=== PATIENT | male | born 1965 | race Caucasian/White ===

== ENCOUNTER 2016-05-08 01:22 | Inpatient (IN) | payer MEDICARE, MEDICAID ==
[2016-05-08] VITALS (8 sets, daily range): BP systolic 91–158; BP diastolic 56–95
[~2016-05-08] VITALS: Ht 188 cm; Wt 82.4 kg
--- NOTE | ~2016-05-08 | CON ---
[place], [place] REPORT OF CONSULTATION NAME: SALO FISH UNIT #: [id number] ROOM: 419 DOCTOR: BRAXTON DE JESUS MD BIRTHDATE: [birth year] DOS: 05/14/2016 CHIEF COMPLAINT: "I am just not feeling well." HISTORY OF PRESENT ILLNESS: This is a 50-year-old white male well known to me due to multiple admissions here at [facility]. He has a significant history of polysubstance abuse that includes alcohol, opioids and cocaine. Most recently, he states he went into withdrawal symptoms after quitting drinking and was also using the cocaine and heroin and Suboxone heavily. He reports to me now that he is not sleeping. He is going through withdrawal symptoms. He is feeling increasingly despondent and depressed and feels that he needs to be back on his medications. In the past, he has been on Zyprexa and Zoloft that have worked partially. He, however, has a significant history of medication noncompliance and lack of follow through. MENTAL STATUS: He is alert and oriented to person, place, and time. Mood is depressed. Affect is flat, blunted with some anxious overtones. He is rather irritable and terse at times. There are no overt psychotic symptoms at the present time. Memory is intact. DIAGNOSES: Bipolar, type 2 and polysubstance dependence. PLAN: I will simplify his drug regimen at this point. I am trying to minimize as much p.r.n. as possible because he will tend to overuse these medicines if he is given the chance I will discontinue Zoloft in lieu of Remeron 15 at bedtime as this will help with sleep and it will also block some of the opiate withdrawal symptoms. Restart on Zyprexa 5 mg in the morning and 10 mg at night for the same reason. This will offer mood stability and block some withdrawal symptoms. Avoid the use of Ativan as much as possible. Instead, I will start him on straight Vistaril 100 mg t.i.d. and start him back on his Neurontin 200 mg t.i.d. to decrease the anxiety with a non-addictive alternative. [facility]. BRAXTON DE JESUS MD CM:CONSTR:REPORT OF CONSULTATION 0906 05/14/16 1003 interface
[~2016-05-08 01:22] MED LIST: ADVAIR 250/501 EA INH; ADVAIR DISKUS 11 DSK INH; ADVAIR DISKUS 21 DSK INH; ALBUTEROL0.09 MG/A1 INH; ALBUTEROL0.09 MG/A2 INH; AMLODIPINE BES2.5 MG PO; ANAPROX DS550 MG PO; ASPIRIN ADULT L81 M2 PO; ASPIRIN EC325 MG PO; ASPRIN/BUTALBIT1 TAB; ATARAX,VISTARIL50 MG PO; ATIVAN; ATIVAN1 MG PO; ATIVAN2 MG PO; BACLOFEN10 MG PO; BACTRIM DS 8001 TA1 PO; BAYER ASPIRIN C81 MG PO; BENTYL10 MG PO; BRIN10TA PO; BUSPIRONE HCL10 MG PO; BUSPIRONE10 MG PO; CARDIZEM LA180 MG PO; COLACE100 MG PO; CYCLOBENZAPRINE5 M3 PO; DICYCLOMINE HCL20 MG PO; DILTIAZEM HYDR180 M2 PO; DOXEPIN100 MG PO; EFFIENT10 MG PO; GABAPENTIN300 MG PO; GABAPENTIN600 MG PO; GEODON20 MG PO; GEODON60 MG PO; GEODON80 MG PO; HYDROCODONE BIT1 T11 PO; HYDROXYZINE PAM25 MG PO; HYDROXYZINE PAM50 MG; IMDUR ER30 MG PO; INVEGA6 MG PO; KEFLEX500 MG PO; KROGER NIC21 MG/24 H T; LEVOFLOXACIN500 MG PO; LIBRIUM25 MG PO; LISINOPRIL10 M1 PO; LODINE400 MG PO; LOPRESSOR25 MG PO; LOPRESSOR50 MG PO; Lopressor25 MG PO; MEDROL DOSEPAK4 MG PO; METOPROLOL TART50 M1 PO; METOPROLOL50 MG PO; MIRTAZAPINE15 M2 PO; MIRTAZAPINE30 M2 PO; MOTRIN800 MG PO; MULTIVITAMIN1 TA1 PO; Motrin,Rufen800 MG PO; NEURONTIN800 MG PO; NITROSTAT0.4 MG SL; NORFLEX100 MG PO; NORTRIPTYLINE10 MG PO; NORVASC10 MG PO; OLANZAPINE10 MG PO; OMEPRAZOLE DR20 M1 PO; ONDANSETRON HYDR4 M1 PO; Orphenadrine C100 MG PO; PENICILLIN VK500 MG PO; PEPCID20 MG PO; PERCOCET 325 MG1 TA2 PO; PHENERGAN25 MG R; PLAVIX75 MG PO; PRAVACHOL40 MG PO; PROAIR HFA0.09 MG/AC INH; PROAIR HFA8.5 GM INH; PROTONIX40 MG PO; RANEXA500 MG PO; RISPERDAL0.25 MG PO; RISPERDAL2 MG PO; ROBAXIN750 MG PO; Robaxin PO; SEPTRA DS 800 M1 TAB PO; SERTRALINE HYD100 MG PO; SERTRALINE HYDR50 MG PO; SINEMET 25-100M1 TAB PO; SINGULAIR10 MG PO; THERA TABS1 TAB PO; TRAMADOL HCL50 MG PO; TRAZODONE HYDR150 MG PO; ULTRAM50 MG PO; VICODIN 5/500 505 MG PO; VICODIN 500 MG-1 TAB PO; VITAMIN B-11 TAB PO; VITAMIN D50000 IU PO; XANAX0.25 MG PO; XANAX0.5 MG PO; XANAX1 MG PO; ZYPREXA10 M1 PO; ZYPREXA2.5 MG PO; [UNRECOGNIZED DRUG - REMARK]
[2016-05-08 01:43] LABS: BASO % 0.3 % (0.0-1.0); EOS # 0.2 10*3/uL (0.0-0.4); EOS % 1.8 % (1.0-4.0); HEMOGLOBIN 12.9 g/dl (14.0-18.0); LYMPH # 2.1 10*3/uL (1.3-4.4); LYMPH % 22.4 % (27.0-41.0); MEAN CELL VOLUME 86.2 fl (80.0-94.0); MEAN CORPUSCULAR HGB 27.8 pg (27.0-31.0); MEAN CORPUSCULAR HGB CONC 32.3 g/dl (33.0-37.0); MEAN PLATELET VOLUME 10.5 fl (9.6-12.3); MONO # 0.8 10*3/uL (0.1-1.0); MONO % 8.8 % (3.0-9.0); NEUT # 6.2 10*3/uL (2.3-7.9); NEUT % 66.5 % (47.0-73.0); PLATELET COUNT AUTOMATED 208 10*3/uL (130-400); RED BLOOD COUNT 4.64 10*6/uL (4.50-5.90); RED CELL DISTRI WIDTH 14.6 % (0-14.5); WHITE BLOOD COUNT 9.3 10*3/uL (4.8-10.8)
[2016-05-08 01:59] LABS: ALBUMIN 3.7 gm/dl (3.1-4.5); ALKALINE PHOSPHATASE 85 U/L (45-117); BILIRUBIN, TOTAL 0.2 mg/dl (0.2-1.0); BUN 10 mg/dl (7-24); CARBON DIOXIDE 26 mmol/L (21-32); CHLORIDE 104 mmol/L (98-107); EST GLOM FILT AFRICAN AMERICAN > 60 ml/min; GLUCOSE 79 mg/dL (65-99); MAGNESIUM 2.1 mg/dL (1.5-2.1); POTASSIUM 4.3 mmol/L (3.5-5.1); SGOT/AST 47 IU/L (3-35); SGPT/ALT 60 U/L (12-78); SODIUM 140 mmol/L (136-145); TOTAL PROTEIN 7.8 gm/dL (6.4-8.2)
[2016-05-08 02:10] LABS: BILIRUBIN NEGATIVE (NEGATIVE); BLOOD NEGATIVE (NEGATIVE); CLARITY CLEAR (CLEAR); COLOR YELLOW (YELLOW); GLUCOSE NEGATIVE (NEGATIVE); KETONE NEGATIVE (NEGATIVE); LEUKO ESTERASE NEGATIVE (NEGATIVE); NITRITE NEGATIVE (NEGATIVE); PROTEIN NEGATIVE (NEGATIVE); UROBILINOGEN 0.2 E.U./dl (0.2-1.0)
[2016-05-08 02:16] LABS: URINE REFLEX COMMENT NO (NO)
[2016-05-08 02:19] LABS: URINE AMPHETAMINES < 1000 (1000ng/ml); URINE BARBITURATES < 200 (200ng/ml); URINE COCAINE < 300 (300ng/ml)
[2016-05-08 10:56] LABS: BASO % 0.4 % (0.0-1.0); EOS # 0.2 10*3/uL (0.0-0.4); EOS % 2.5 % (1.0-4.0); HEMATOCRIT 37.7 % (42.0-52.0); HEMOGLOBIN 12.6 g/dl (14.0-18.0); LYMPH # 1.7 10*3/uL (1.3-4.4); LYMPH % 23.6 % (27.0-41.0); MEAN CELL VOLUME 83.6 fl (80.0-94.0); MEAN CORPUSCULAR HGB 27.9 pg (27.0-31.0); MEAN CORPUSCULAR HGB CONC 33.4 g/dl (33.0-37.0); MEAN PLATELET VOLUME 10.5 fl (9.6-12.3); MONO % 13.1 % (3.0-9.0); NEUT # 4.3 10*3/uL (2.3-7.9); PLATELET COUNT AUTOMATED 189 10*3/uL (130-400); RED BLOOD COUNT 4.51 10*6/uL (4.50-5.90); RED CELL DISTRI WIDTH 14.7 % (0-14.5); WHITE BLOOD COUNT 7.2 10*3/uL (4.8-10.8)
[2016-05-08 11:05] LABS: INTERNATIONAL NORM RATIO 0.9 (2.0-3.5)
[2016-05-08 11:11] LABS: ALBUMIN 3.4 gm/dl (3.1-4.5); ALKALINE PHOSPHATASE 85 U/L (45-117); BILIRUBIN, TOTAL 0.3 mg/dl (0.2-1.0); BUN 9 mg/dl (7-24); CARBON DIOXIDE 20 mmol/L (21-32); CHLORIDE 108 mmol/L (98-107); EST GLOM FILT AFRICAN AMERICAN > 60 ml/min; GLUCOSE 96 mg/dL (65-99); POTASSIUM 4.1 mmol/L (3.5-5.1); SGOT/AST 38 IU/L (3-35); SGPT/ALT 51 U/L (12-78); SODIUM 142 mmol/L (136-145); TOTAL PROTEIN 7.2 gm/dL (6.4-8.2)
[2016-05-08] MEDS ORDERED: AMBIEN10 M1 PO (15:51)
[2016-05-08] MEDS ORDERED: LOPRESSOR50 M1 PO (15:51)
[2016-05-09] VITALS: BP 146/80
[2016-05-09 03:57] VITALS: BP 136/78
[2016-05-09 08:00] VITALS: BP 142/95
[2016-05-09 12:00] VITALS: BP 130/84
[2016-05-09 16:00] VITALS: BP 145/95
[2016-05-09 20:00] VITALS: BP 127/91
[2016-05-10] VITALS: BP 137/983
[2016-05-10 04:00] VITALS: BP 149/92
[2016-05-10 06:13] LABS: BASO # 0.1 10*3/uL (0.0-0.1); BASO % 0.9 % (0.0-1.0); EOS # 0.3 10*3/uL (0.0-0.4); EOS % 4.7 % (1.0-4.0); HEMATOCRIT 38.1 % (42.0-52.0); HEMOGLOBIN 12.2 g/dl (14.0-18.0); LYMPH # 1.7 10*3/uL (1.3-4.4); LYMPH % 26.7 % (27.0-41.0); MEAN CELL VOLUME 86.2 fl (80.0-94.0); MEAN CORPUSCULAR HGB 27.6 pg (27.0-31.0); MEAN PLATELET VOLUME 11.1 fl (9.6-12.3); MONO # 0.7 10*3/uL (0.1-1.0); MONO % 11.5 % (3.0-9.0); NEUT # 3.5 10*3/uL (2.3-7.9); PLATELET COUNT AUTOMATED 155 10*3/uL (130-400); RED BLOOD COUNT 4.42 10*6/uL (4.50-5.90); RED CELL DISTRI WIDTH 14.2 % (0-14.5); WHITE BLOOD COUNT 6.3 10*3/uL (4.8-10.8)
[2016-05-10 06:43] LABS: ALBUMIN 3.2 gm/dl (3.1-4.5); ALKALINE PHOSPHATASE 101 U/L (45-117); BILIRUBIN, TOTAL 0.2 mg/dl (0.2-1.0); BUN 14 mg/dl (7-24); CARBON DIOXIDE 28 mmol/L (21-32); CHLORIDE 102 mmol/L (98-107); EST GLOM FILT AFRICAN AMERICAN > 60 ml/min; GLUCOSE 94 mg/dL (65-99); POTASSIUM 4.2 mmol/L (3.5-5.1); SGOT/AST 46 IU/L (3-35); SGPT/ALT 58 U/L (12-78); SODIUM 139 mmol/L (136-145); TOTAL PROTEIN 6.8 gm/dL (6.4-8.2)
[2016-05-10 08:00] VITALS: BP 129/87
[2016-05-10 12:00] VITALS: BP 128/92
[2016-05-10 16:00] VITALS: BP 122/96
[2016-05-10 20:00] VITALS: BP 130/72
[2016-05-11] VITALS: BP 130/78
[2016-05-11 04:00] VITALS: BP 132/80
[2016-05-11 08:00] VITALS: BP 140/72
[2016-05-11 16:00] VITALS: BP 123/77
[2016-05-12] VITALS: BP 116/85; BP 129/52
[2016-05-12 08:00] VITALS: BP 124/86
[2016-05-12 12:00] VITALS: BP 121/71
[2016-05-12 16:00] VITALS: BP 110/68
[2016-05-12 20:00] VITALS: BP 116/59
[2016-05-13] VITALS: BP 109/50
[2016-05-13 06:25] LABS: BASO % 0.5 % (0.0-1.0); EOS # 0.3 10*3/uL (0.0-0.4); EOS % 4.5 % (1.0-4.0); HEMATOCRIT 39.7 % (42.0-52.0); HEMOGLOBIN 12.9 g/dl (14.0-18.0); LYMPH % 26.4 % (27.0-41.0); MEAN CELL VOLUME 86.3 fl (80.0-94.0); MEAN CORPUSCULAR HGB CONC 32.5 g/dl (33.0-37.0); MEAN PLATELET VOLUME 10.9 fl (9.6-12.3); MONO # 0.8 10*3/uL (0.1-1.0); MONO % 10.6 % (3.0-9.0); NEUT # 4.4 10*3/uL (2.3-7.9); NEUT % 57.7 % (47.0-73.0); PLATELET COUNT AUTOMATED 213 10*3/uL (130-400); RED CELL DISTRI WIDTH 13.8 % (0-14.5); WHITE BLOOD COUNT 7.6 10*3/uL (4.8-10.8)
[2016-05-13 07:01] LABS: EST GLOM FILT AFRICAN AMERICAN > 60 ml/min
[2016-05-13 08:00] VITALS: BP 140/79
[2016-05-13 12:00] VITALS: BP 132/80
[2016-05-13 16:00] VITALS: BP 126/86
[2016-05-13 20:00] VITALS: BP 136/90
[2016-05-14] VITALS: BP 134/87
[2016-05-14 08:00] VITALS: BP 130/79
[2016-05-14 12:00] VITALS: BP 154/84
[2016-05-14 16:00] VITALS: BP 110/84
[2016-05-14 20:00] VITALS: BP 116/69
[2016-05-15] MEDS ORDERED: CLONIDINE0.2 MG PO (19:19)
[2016-05-15] MEDS ORDERED: PHENERGAN25 MG R (19:19)
== END 2016-05-14 22:52 | disposition left against medical advice (07) | DRG 894 ==
LOC: ED 01:22 → 4E 09:17 → EDHOLD 09:17 → ICCU 09:17 → 4E 09:30 → ICCU 10:30 → 4E 05-10 14:24 → ICCU 05-10 23:22 → 4E 05-11 13:43
PROVIDERS: Emergency Medicine; Internal Medicine; Internal Medicine Hospice and Palliative Medicine; Student in an Organized Health Care Education/Training Program
DX: F10.231 Alcohol dependence with withdrawal delirium (principal); I10 Essential (primary) hypertension; F31.81 Bipolar II disorder; F12.10 Cannabis abuse, uncomplicated; F10.232 Alcohol dependence with withdrawal with perceptual disturbance; D64.9 Anemia, unspecified; I25.10 Atherosclerotic heart disease of native coronary artery without angina pectoris; F14.10 Cocaine abuse, uncomplicated; F19.10 Other psychoactive substance abuse, uncomplicated; J44.9 Chronic obstructive pulmonary disease, unspecified; F17.200 Nicotine dependence, unspecified, uncomplicated; F11.10 Opioid abuse, uncomplicated; E78.5 Hyperlipidemia, unspecified; Z53.21 Procedure and treatment not carried out due to patient leaving prior to being seen by health care provider; Z95.5 Presence of coronary angioplasty implant and graft; Z83.3 Family history of diabetes mellitus; Z79.899 Other long term (current) drug therapy

== ENCOUNTER 2016-05-16 14:05 | Emergency (ER) | payer MEDICARE, MEDICAID ==
[~2016-05-16] VITALS: Ht 187.9 cm; Wt 68.0 kg
[~2016-05-16 14:05] MED LIST changes: +AMBIEN10 M1 PO; +CLONIDINE0.2 MG PO; +LOPRESSOR50 M1 PO
[2016-05-16 14:12] VITALS: BP 158/88
[2016-05-16 14:41] LABS: BASO # 0.1 10*3/uL (0.0-0.1); BASO % 0.4 % (0.0-1.0); EOS # 0.1 10*3/uL (0.0-0.4); EOS % 0.5 % (1.0-4.0); HEMATOCRIT 37.9 % (42.0-52.0); LYMPH # 3.7 10*3/uL (1.3-4.4); LYMPH % 26.8 % (27.0-41.0); MEAN CELL VOLUME 80.8 fl (80.0-94.0); MEAN CORPUSCULAR HGB 27.7 pg (27.0-31.0); MEAN CORPUSCULAR HGB CONC 34.3 g/dl (33.0-37.0); MEAN PLATELET VOLUME 9.7 fl (9.6-12.3); MONO # 1.2 10*3/uL (0.1-1.0); MONO % 8.5 % (3.0-9.0); NEUT # 8.7 10*3/uL (2.3-7.9); NEUT % 63.5 % (47.0-73.0); PLATELET COUNT AUTOMATED 277 10*3/uL (130-400); RED BLOOD COUNT 4.69 10*6/uL (4.50-5.90); RED CELL DISTRI WIDTH 13.8 % (0-14.5); WHITE BLOOD COUNT 13.7 10*3/uL (4.8-10.8)
[2016-05-16 14:50] LABS: PROTHROMBIN TIME 10.4 SECONDS (9.0-12.4)
[2016-05-16 14:58] LABS: ALBUMIN 4.2 gm/dl (3.1-4.5); ALKALINE PHOSPHATASE 99 U/L (45-117); BILIRUBIN, TOTAL 0.3 mg/dl (0.2-1.0); BUN 6 mg/dl (7-24); C-REACTIVE PROTEIN 0.43 MG/DL (0-0.3); CARBON DIOXIDE 21 mmol/L (21-32); CHLORIDE 101 mmol/L (98-107); CKMB 2.3 ng/ml (0.5-3.6); CPK 325 U/L (39-308); EST GLOM FILT AFRICAN AMERICAN > 60 ml/min; GLUCOSE 86 mg/dL (65-99); MAGNESIUM 1.9 mg/dL (1.5-2.1); POTASSIUM 3.7 mmol/L (3.5-5.1); SGOT/AST 117 IU/L (3-35); SGPT/ALT 164 U/L (12-78); SODIUM 135 mmol/L (136-145); TOTAL PROTEIN 8.4 gm/dL (6.4-8.2)
[2016-05-16 14:59] LABS: TROPONIN I < 0.015 ng/ml (<0.045)
[2016-05-16 16:38] LABS: LA>2 REFLEX 2 HR DRAW NOW
== END 2016-05-16 14:50 | disposition left against medical advice (07) ==
LOC: ED 14:05
PROVIDERS: Nurse Practitioner Family
DX: F14.10 Cocaine abuse, uncomplicated (principal); F17.200 Nicotine dependence, unspecified, uncomplicated; F11.10 Opioid abuse, uncomplicated; I25.10 Atherosclerotic heart disease of native coronary artery without angina pectoris; J44.9 Chronic obstructive pulmonary disease, unspecified; F32.9 Major depressive disorder, single episode, unspecified; E78.5 Hyperlipidemia, unspecified; I10 Essential (primary) hypertension; F12.10 Cannabis abuse, uncomplicated; Z79.899 Other long term (current) drug therapy; Z98.890 Other specified postprocedural states; Z88.8 Allergy status to other drugs, medicaments and biological substances

== ENCOUNTER 2016-05-20 23:59 | Emergency (ER) | payer MEDICARE, MEDICAID ==
[~2016-05-20] VITALS: Ht 187.9 cm; Wt 81.6 kg
[2016-05-21 00:04] VITALS: BP 119/71
[2016-05-21 00:48] LABS: BASO # 0.1 10*3/uL (0.0-0.1); BASO % 0.6 % (0.0-1.0); EOS # 0.1 10*3/uL (0.0-0.4); HEMATOCRIT 35.1 % (42.0-52.0); HEMOGLOBIN 11.8 g/dl (14.0-18.0); LYMPH % 39.2 % (27.0-41.0); MEAN CELL VOLUME 83.6 fl (80.0-94.0); MEAN CORPUSCULAR HGB 28.1 pg (27.0-31.0); MEAN CORPUSCULAR HGB CONC 33.6 g/dl (33.0-37.0); MEAN PLATELET VOLUME 9.7 fl (9.6-12.3); MONO # 0.7 10*3/uL (0.1-1.0); MONO % 6.5 % (3.0-9.0); NEUT # 5.3 10*3/uL (2.3-7.9); NEUT % 52.5 % (47.0-73.0); PLATELET COUNT AUTOMATED 233 10*3/uL (130-400); RED CELL DISTRI WIDTH 14.4 % (0-14.5); WHITE BLOOD COUNT 10.1 10*3/uL (4.8-10.8)
[2016-05-21 01:02] LABS: ALBUMIN 3.5 gm/dl (3.1-4.5); ALKALINE PHOSPHATASE 95 U/L (45-117); BILIRUBIN, TOTAL 0.3 mg/dl (0.2-1.0); BUN 6 mg/dl (7-24); CARBON DIOXIDE 20 mmol/L (21-32); CHLORIDE 103 mmol/L (98-107); EST GLOM FILT AFRICAN AMERICAN > 60 ml/min; GLUCOSE 78 mg/dL (65-99); POTASSIUM 3.6 mmol/L (3.5-5.1); SGOT/AST 45 IU/L (3-35); SGPT/ALT 69 U/L (12-78); SODIUM 135 mmol/L (136-145)
[2016-05-21 01:40] LABS: BILIRUBIN NEGATIVE (NEGATIVE); BLOOD NEGATIVE (NEGATIVE); CLARITY CLEAR (CLEAR); COLOR YELLOW (YELLOW); GLUCOSE NEGATIVE (NEGATIVE); KETONE NEGATIVE (NEGATIVE); LEUKO ESTERASE NEGATIVE (NEGATIVE); NITRITE NEGATIVE (NEGATIVE); PROTEIN NEGATIVE (NEGATIVE); SPECIFIC GRAVITY <= 1.005 (1.005-1.030); UROBILINOGEN 0.2 E.U./dl (0.2-1.0)
[2016-05-21 01:46] LABS: BACTERIA TRACE; EPITHELIAL CELLS 0-2; RBC 0-2 rbc/hpf (0-2); URINE REFLEX COMMENT NO (NO)
[2016-05-21 01:53] LABS: URINE AMPHETAMINES < 1000 (1000ng/ml); URINE BARBITURATES < 200 (200ng/ml); URINE COCAINE > 300 (300ng/ml)
== END 2016-05-21 05:21 | disposition left against medical advice (07) ==
LOC: ED 23:59
PROVIDERS: Emergency Medicine Emergency Medical Services
DX: F10.120 Alcohol abuse with intoxication, uncomplicated (principal); I25.10 Atherosclerotic heart disease of native coronary artery without angina pectoris; J44.9 Chronic obstructive pulmonary disease, unspecified; F32.9 Major depressive disorder, single episode, unspecified; F14.10 Cocaine abuse, uncomplicated; F12.10 Cannabis abuse, uncomplicated; I10 Essential (primary) hypertension; E78.5 Hyperlipidemia, unspecified; F19.10 Other psychoactive substance abuse, uncomplicated; F11.10 Opioid abuse, uncomplicated; F17.200 Nicotine dependence, unspecified, uncomplicated; Z79.899 Other long term (current) drug therapy; Z88.8 Allergy status to other drugs, medicaments and biological substances

== ENCOUNTER 2016-05-25 09:52 | Inpatient (IN) | payer MEDICARE, MEDICAID ==
[2016-05-25] VITALS (7 sets, daily range): BP systolic 115–150; BP diastolic 68–99
[~2016-05-25] VITALS: Ht 188 cm; Wt 83.1 kg
[2016-05-25 10:56] LABS: BASO % 0.5 % (0.0-1.0); EOS # 0.1 10*3/uL (0.0-0.4); EOS % 1.7 % (1.0-4.0); HEMATOCRIT 36.1 % (42.0-52.0); HEMOGLOBIN 12.2 g/dl (14.0-18.0); LYMPH % 34.5 % (27.0-41.0); MEAN CELL VOLUME 84.1 fl (80.0-94.0); MEAN CORPUSCULAR HGB 28.4 pg (27.0-31.0); MEAN CORPUSCULAR HGB CONC 33.8 g/dl (33.0-37.0); MEAN PLATELET VOLUME 9.8 fl (9.6-12.3); MONO # 0.4 10*3/uL (0.1-1.0); NEUT # 3.3 10*3/uL (2.3-7.9); NEUT % 57.1 % (47.0-73.0); PLATELET COUNT AUTOMATED 193 10*3/uL (130-400); RED BLOOD COUNT 4.29 10*6/uL (4.50-5.90); RED CELL DISTRI WIDTH 15.5 % (0-14.5); WHITE BLOOD COUNT 5.8 10*3/uL (4.8-10.8)
[2016-05-25 11:05] LABS: PROTHROMBIN TIME 10.7 SECONDS (9.0-12.4)
[2016-05-25 11:15] LABS: ALBUMIN 3.5 gm/dl (3.1-4.5); ALKALINE PHOSPHATASE 98 U/L (45-117); BILIRUBIN, TOTAL 0.4 mg/dl (0.2-1.0); BUN 3 mg/dl (7-24); C-REACTIVE PROTEIN 1.69 MG/DL (0-0.3); CARBON DIOXIDE 25 mmol/L (21-32); CHLORIDE 112 mmol/L (98-107); CKMB 3.1 ng/ml (0.5-3.6); CPK 346 U/L (39-308); EST GLOM FILT AFRICAN AMERICAN > 60 ml/min; GLUCOSE 80 mg/dL (65-99); MAGNESIUM 1.8 mg/dL (1.5-2.1); POTASSIUM 3.7 mmol/L (3.5-5.1); SGOT/AST 38 IU/L (3-35); SGPT/ALT 49 U/L (12-78); SODIUM 144 mmol/L (136-145); TOTAL PROTEIN 7.4 gm/dL (6.4-8.2)
[2016-05-25 11:17] LABS: TROPONIN I < 0.015 ng/ml (<0.045)
[2016-05-25 14:15] LABS: BILIRUBIN NEGATIVE (NEGATIVE); BLOOD NEGATIVE (NEGATIVE); CLARITY CLEAR (CLEAR); COLOR YELLOW (YELLOW); GLUCOSE NEGATIVE (NEGATIVE); KETONE NEGATIVE (NEGATIVE); LEUKO ESTERASE NEGATIVE (NEGATIVE); NITRITE NEGATIVE (NEGATIVE); PROTEIN NEGATIVE (NEGATIVE); SPECIFIC GRAVITY <= 1.005 (1.005-1.030); UROBILINOGEN 0.2 E.U./dl (0.2-1.0)
[2016-05-25 14:25] LABS: URINE AMPHETAMINES < 1000 (1000ng/ml); URINE BARBITURATES < 200 (200ng/ml); URINE COCAINE > 300 (300ng/ml)
[2016-05-25 14:27] LABS: BACTERIA TRACE; EPITHELIAL CELLS 0-2; RBC 0-2 rbc/hpf (0-2); URINE REFLEX COMMENT NO (NO); WBC 0-2 wbc/hpf (0-5)
[2016-05-26] VITALS: BP 148/99
[2016-05-26 04:00] VITALS: BP 138/90
[2016-05-26 06:22] LABS: BASO % 0.4 % (0.0-1.0); EOS # 0.2 10*3/uL (0.0-0.4); EOS % 3.3 % (1.0-4.0); HEMATOCRIT 38.5 % (42.0-52.0); HEMOGLOBIN 12.5 g/dl (14.0-18.0); LYMPH % 27.3 % (27.0-41.0); MEAN CELL VOLUME 85.6 fl (80.0-94.0); MEAN CORPUSCULAR HGB 27.8 pg (27.0-31.0); MEAN CORPUSCULAR HGB CONC 32.5 g/dl (33.0-37.0); MEAN PLATELET VOLUME 10.6 fl (9.6-12.3); MONO # 0.8 10*3/uL (0.1-1.0); MONO % 11.5 % (3.0-9.0); NEUT # 4.1 10*3/uL (2.3-7.9); NEUT % 57.2 % (47.0-73.0); PLATELET COUNT AUTOMATED 200 10*3/uL (130-400); RED CELL DISTRI WIDTH 15.7 % (0-14.5); WHITE BLOOD COUNT 7.2 10*3/uL (4.8-10.8)
[2016-05-26 06:49] LABS: ALBUMIN 3.3 gm/dl (3.1-4.5); BUN 7 mg/dl (7-24); CARBON DIOXIDE 27 mmol/L (21-32); CHLORIDE 110 mmol/L (98-107); EST GLOM FILT AFRICAN AMERICAN > 60 ml/min; GLUCOSE 82 mg/dL (65-99); POTASSIUM 3.9 mmol/L (3.5-5.1); SGOT/AST 30 IU/L (3-35); SGPT/ALT 41 U/L (12-78); SODIUM 143 mmol/L (136-145)
[2016-05-26 06:52] LABS: ALKALINE PHOSPHATASE 97 U/L (45-117); BILIRUBIN, TOTAL 0.9 mg/dl (0.2-1.0)
[2016-05-26 07:23] LABS: FOLIC ACID 10.11 ng/mL (>5.38)
[2016-05-26 08:00] VITALS: BP 154/97
[2016-05-26 12:00] VITALS: BP 156/101
[2016-05-26 16:00] VITALS: BP 161/99
[2016-05-26 20:00] VITALS: BP 170/110
[2016-05-27] VITALS: BP 138/92
[2016-05-27 04:00] VITALS: BP 132/86
[2016-05-27 08:00] VITALS: BP 167/110
[2016-05-27] MEDS ORDERED: CARBIDOPA/LEVOD1 TA1 PO (11:54)
[2016-05-27] MEDS ORDERED: LORAZEPAM1 MG PO (11:54)
[2016-05-27] MEDS ORDERED: METHOCARBAMOL750 M1 PO (11:54)
[2016-05-27] MEDS ORDERED: ZOFRAN 4 MG ED2 TAB PO (11:54)
[2016-05-27] MEDS ORDERED: ATARAX,VISTARIL50 MG PO (11:54)
[2016-05-27] MEDS ORDERED: LISINOPRIL20 MG PO (11:54)
[2016-05-27] MEDS ORDERED: ATIVAN1 MG PO (11:57)
[2016-05-27 12:00] VITALS: BP 144/93
== END 2016-05-27 12:22 | DRG 897 ==
LOC: ED 09:52 → EDHOLD 14:09 → ICCU 14:09
PROVIDERS: Emergency Medicine; Internal Medicine
DX: F10.231 Alcohol dependence with withdrawal delirium (principal); F14.10 Cocaine abuse, uncomplicated; F17.200 Nicotine dependence, unspecified, uncomplicated; F19.10 Other psychoactive substance abuse, uncomplicated; M79.1 Myalgia; G25.81 Restless legs syndrome; I10 Essential (primary) hypertension; F41.9 Anxiety disorder, unspecified; Z88.8 Allergy status to other drugs, medicaments and biological substances; Z95.5 Presence of coronary angioplasty implant and graft; Z83.3 Family history of diabetes mellitus; Z71.6 Tobacco abuse counseling

== ENCOUNTER 2016-06-28 11:10 | Inpatient (IN) | payer MEDICARE, MEDICAID ==
[~2016-06-28] VITALS: Ht 187.9 cm; Wt 83.6 kg
--- NOTE | ~2016-06-28 | EKG ---
[place], [place] ELECTROCARDIOGRAM REPORT NAME: SALO FISH UNIT #: [id number] ROOM: [place] [address] DOCTOR: SUKUMAR BALDERAS MD BIRTHDATE: [birth year] DOS: 06/28/2016 TIME: 11:27 p.m. Sinus tachycardia with rate 121. Probable biatrial enlargement. Nonspecific ST changes likely related to rate. Abnormal electrocardiogram. SUKUMAR BALDERAS MD CM:EKGRPT:ELECTROCARDIOGRAM REPORT 1224 1624 SUKUMAR BALDERAS MD
[~2016-06-28 11:10] MED LIST changes: +CARBIDOPA/LEVOD1 TA1 PO; +LISINOPRIL20 MG PO; +LORAZEPAM1 MG PO; +METHOCARBAMOL750 M1 PO; +ZOFRAN 4 MG ED2 TAB PO
[2016-06-28 11:15] VITALS: BP 135/91
[2016-06-28 11:30] LABS: BASO % 0.3 % (0.0-1.0); EOS # 0.1 10*3/uL (0.0-0.4); EOS % 1.9 % (1.0-4.0); HEMATOCRIT 40.7 % (42.0-52.0); HEMOGLOBIN 13.2 g/dl (14.0-18.0); LYMPH # 2.3 10*3/uL (1.3-4.4); LYMPH % 32.2 % (27.0-41.0); MEAN CELL VOLUME 87.9 fl (80.0-94.0); MEAN CORPUSCULAR HGB 28.5 pg (27.0-31.0); MEAN CORPUSCULAR HGB CONC 32.4 g/dl (33.0-37.0); MEAN PLATELET VOLUME 10.7 fl (9.6-12.3); MONO # 0.7 10*3/uL (0.1-1.0); MONO % 10.2 % (3.0-9.0); NEUT % 55.1 % (47.0-73.0); PLATELET COUNT AUTOMATED 169 10*3/uL (130-400); RED BLOOD COUNT 4.63 10*6/uL (4.50-5.90); RED CELL DISTRI WIDTH 16.5 % (0-14.5); WHITE BLOOD COUNT 7.2 10*3/uL (4.8-10.8)
[2016-06-28 11:48] LABS: ALBUMIN 3.7 gm/dl (3.1-4.5); ALKALINE PHOSPHATASE 103 U/L (45-117); BUN 9 mg/dl (7-24); CARBON DIOXIDE 17 mmol/L (21-32); CHLORIDE 101 mmol/L (98-107); EST GLOM FILT AFRICAN AMERICAN > 60 ml/min; GLUCOSE 81 mg/dL (65-99); SGOT/AST 30 IU/L (3-35); SGPT/ALT 34 U/L (12-78); SODIUM 139 mmol/L (136-145); TOTAL PROTEIN 7.6 gm/dL (6.4-8.2)
[2016-06-28 11:51] LABS: CPK 99 U/L (39-308)
[2016-06-28 11:54] LABS: TROPONIN I < 0.015 ng/ml (<0.045)
[2016-06-28] MEDS ORDERED: LOPRESSOR50 M1 PO (11:59)
[2016-06-28] MEDS ORDERED: ACAMPROSATE CA333 M1 PO (12:00)
[2016-06-28] MEDS ORDERED: NEURONTIN800 MG PO (12:03)
[2016-06-28] MEDS ORDERED: ZESTRIL20 MG PO (12:06)
[2016-06-28 12:41] LABS: BILIRUBIN NEGATIVE (NEGATIVE); BLOOD NEGATIVE (NEGATIVE); CLARITY CLEAR (CLEAR); COLOR STRAW (YELLOW); GLUCOSE NEGATIVE (NEGATIVE); KETONE 3+ (NEGATIVE); LEUKO ESTERASE NEGATIVE (NEGATIVE); NITRITE NEGATIVE (NEGATIVE); PH 5.5 (5.0-9.0); PROTEIN NEGATIVE (NEGATIVE); UROBILINOGEN 0.2 E.U./dl (0.2-1.0)
[2016-06-28 12:49] LABS: URINE REFLEX COMMENT NO (NO)
[2016-06-28 12:50] LABS: URINE AMPHETAMINES < 1000 (1000ng/ml); URINE BARBITURATES < 200 (200ng/ml); URINE COCAINE > 300 (300ng/ml)
[2016-06-28 16:00] VITALS: BP 122/78
[2016-06-28 18:30] LABS: CPK 85 U/L (39-308)
[2016-06-28 18:32] LABS: TROPONIN I < 0.015 ng/ml (<0.045)
[2016-06-28 20:00] VITALS: BP 156/98
[2016-06-29] VITALS (7 sets, daily range): BP systolic 111–154; BP diastolic 72–104
[2016-06-29 00:36] LABS: CKMB 0.6 ng/ml (0.5-3.6); CPK 70 U/L (39-308)
[2016-06-29 00:37] LABS: TROPONIN I < 0.015 ng/ml (<0.045)
[2016-06-29 06:46] LABS: BASO % 0.4 % (0.0-1.0); EOS # 0.2 10*3/uL (0.0-0.4); EOS % 3.4 % (1.0-4.0); HEMATOCRIT 37.1 % (42.0-52.0); HEMOGLOBIN 12.6 g/dl (14.0-18.0); LYMPH # 1.4 10*3/uL (1.3-4.4); LYMPH % 24.5 % (27.0-41.0); MEAN CELL VOLUME 86.9 fl (80.0-94.0); MEAN CORPUSCULAR HGB 29.5 pg (27.0-31.0); MEAN PLATELET VOLUME 10.4 fl (9.6-12.3); MONO # 0.7 10*3/uL (0.1-1.0); MONO % 12.1 % (3.0-9.0); NEUT # 3.3 10*3/uL (2.3-7.9); NEUT % 59.2 % (47.0-73.0); PLATELET COUNT AUTOMATED 160 10*3/uL (130-400); RED BLOOD COUNT 4.27 10*6/uL (4.50-5.90); RED CELL DISTRI WIDTH 16.6 % (0-14.5); WHITE BLOOD COUNT 5.5 10*3/uL (4.8-10.8)
[2016-06-29 06:57] LABS: PROTHROMBIN TIME 10.4 SECONDS (9.0-12.4)
[2016-06-29 07:00] LABS: ALBUMIN 3.2 gm/dl (3.1-4.5); ALKALINE PHOSPHATASE 101 U/L (45-117); BILIRUBIN, TOTAL 0.6 mg/dl (0.2-1.0); BUN 8 mg/dl (7-24); CARBON DIOXIDE 25 mmol/L (21-32); CHLORIDE 109 mmol/L (98-107); EST GLOM FILT AFRICAN AMERICAN > 60 ml/min; GLUCOSE 111 mg/dL (65-99); MAGNESIUM 1.8 mg/dL (1.5-2.1); SGOT/AST 24 IU/L (3-35); SGPT/ALT 29 U/L (12-78); SODIUM 142 mmol/L (136-145); TOTAL PROTEIN 6.6 gm/dL (6.4-8.2)
[2016-06-29 07:03] LABS: CKMB 0.7 ng/ml (0.5-3.6); CPK 66 U/L (39-308); TROPONIN I < 0.015 ng/ml (<0.045)
[2016-06-30] VITALS: BP 143/96
[2016-06-30 04:00] VITALS: BP 146/97
[2016-06-30 08:00] VITALS: BP 146/97
[2016-06-30 12:00] VITALS: BP 144/76
[2016-06-30 16:00] VITALS: BP 133/97
[2016-06-30 20:00] VITALS: BP 132/83
== END 2016-06-30 20:57 | disposition left against medical advice (07) | DRG 894 ==
LOC: ED 11:10 → EDHOLD 11:35 → ICCU 11:35 → 5E 06-30 13:48
PROVIDERS: Family Medicine; Nurse Practitioner Family
DX: F10.239 Alcohol dependence with withdrawal, unspecified (principal); E44.1 Mild protein-calorie malnutrition; I10 Essential (primary) hypertension; Z71.6 Tobacco abuse counseling; D64.9 Anemia, unspecified; R82.4 Acetonuria; I25.10 Atherosclerotic heart disease of native coronary artery without angina pectoris; F32.9 Major depressive disorder, single episode, unspecified; J44.9 Chronic obstructive pulmonary disease, unspecified; E78.5 Hyperlipidemia, unspecified; F60.3 Borderline personality disorder; F12.10 Cannabis abuse, uncomplicated; F41.9 Anxiety disorder, unspecified; F14.10 Cocaine abuse, uncomplicated; F11.10 Opioid abuse, uncomplicated; G25.81 Restless legs syndrome; Z53.21 Procedure and treatment not carried out due to patient leaving prior to being seen by health care provider; Z76.5 Malingerer [conscious simulation]; Z95.5 Presence of coronary angioplasty implant and graft; Z82.49 Family history of ischemic heart disease and other diseases of the circulatory system; Z88.8 Allergy status to other drugs, medicaments and biological substances; Z79.899 Other long term (current) drug therapy; Z68.23 Body mass index [BMI] 23.0-23.9, adult

== ENCOUNTER 2016-08-08 02:25 | Emergency (ER) | payer MEDICARE, MEDICAID ==
[~2016-08-08] VITALS: Ht 187.9 cm; Wt 86.2 kg
[~2016-08-08 02:25] MED LIST changes: +ACAMPROSATE CA333 M1 PO; +ZESTRIL20 MG PO
[2016-08-08] MEDS ORDERED: ATIVAN1 MG PO (02:35)
[2016-08-08] MEDS ORDERED: METOPROLOL TART50 M1 PO (02:35)
[2016-08-08] MEDS ORDERED: NEURONTIN800 MG PO (02:35)
[2016-08-08] MEDS ORDERED: ZOLOFT50 MG PO (02:36)
[2016-08-08] MEDS ORDERED: ASPIRIN81 MG PO (02:36)
[2016-08-08 04:03] LABS: HEMATOCRIT 39.3 % (42.0-52.0); HEMOGLOBIN 13.3 g/dl (14.0-18.0); MEAN CELL VOLUME 87.7 fl (80.0-94.0); MEAN CORPUSCULAR HGB 29.7 pg (27.0-31.0); MEAN CORPUSCULAR HGB CONC 33.8 g/dl (33.0-37.0); MEAN PLATELET VOLUME 10.2 fl (9.6-12.3); PLATELET COUNT AUTOMATED 176 10*3/uL (130-400); RED BLOOD COUNT 4.48 10*6/uL (4.50-5.90); RED CELL DISTRI WIDTH 15.4 % (0-14.5); WHITE BLOOD COUNT 15.9 10*3/uL (4.8-10.8)
[2016-08-08 04:21] LABS: LYMPHOCYTE # 4.1 10*3/uL (1.3-4.4); MONOCYTE # 1.7 10*3/uL (0.1-1.0); NEUTROPHILS 63 % (47-73); TOTAL CELLS COUNTED 100 #CELLS
[2016-08-08 04:22] LABS: PLATELET SUFFICIENCY NORMAL (NORMAL)
[2016-08-08 04:34] LABS: URINE AMPHETAMINES < 1000 (1000ng/ml); URINE BARBITURATES < 200 (200ng/ml); URINE COCAINE > 300 (300ng/ml)
[2016-08-08 04:37] LABS: ALBUMIN 4.1 gm/dl (3.1-4.5); ALKALINE PHOSPHATASE 105 U/L (45-117); BILIRUBIN, TOTAL 0.5 mg/dl (0.2-1.0); BUN 13 mg/dl (7-24); CARBON DIOXIDE 24 mmol/L (21-32); CHLORIDE 102 mmol/L (98-107); EST GLOM FILT AFRICAN AMERICAN > 60 ml/min; GLUCOSE 72 mg/dL (65-99); SGOT/AST 182 IU/L (3-35); SGPT/ALT 252 U/L (12-78); SODIUM 141 mmol/L (136-145)
[2016-08-08 05:39] LABS: BILIRUBIN NEGATIVE (NEGATIVE); BLOOD NEGATIVE (NEGATIVE); CLARITY CLEAR (CLEAR); COLOR YELLOW (YELLOW); GLUCOSE NEGATIVE (NEGATIVE); KETONE NEGATIVE (NEGATIVE); LEUKO ESTERASE NEGATIVE (NEGATIVE); NITRITE NEGATIVE (NEGATIVE); PROTEIN NEGATIVE (NEGATIVE); SPECIFIC GRAVITY <= 1.005 (1.005-1.030); UROBILINOGEN 0.2 E.U./dl (0.2-1.0)
[2016-08-08 05:47] LABS: BACTERIA TRACE; EPITHELIAL CELLS 0-2; RBC 0-2 rbc/hpf (0-2); URINE REFLEX COMMENT NO (NO); WBC 0-2 wbc/hpf (0-5)
[2016-08-10 10:13] VITALS: BP 137/82
== END 2016-08-10 15:14 | disposition home or self-care (01) ==
LOC: ED 02:25
PROVIDERS: Emergency Medicine
DX: F10.10 Alcohol abuse, uncomplicated (principal); I25.10 Atherosclerotic heart disease of native coronary artery without angina pectoris; J44.9 Chronic obstructive pulmonary disease, unspecified; F11.10 Opioid abuse, uncomplicated; I10 Essential (primary) hypertension; F14.10 Cocaine abuse, uncomplicated; E78.5 Hyperlipidemia, unspecified; F12.10 Cannabis abuse, uncomplicated; Z88.8 Allergy status to other drugs, medicaments and biological substances; Z79.899 Other long term (current) drug therapy; Z79.82 Long term (current) use of aspirin

== ENCOUNTER 2016-08-12 23:54 | Emergency (ER) | payer MEDICARE, MEDICAID ==
[~2016-08-12] VITALS: Ht 187.9 cm; Wt 86.2 kg
[~2016-08-12 23:54] MED LIST changes: +ASPIRIN81 MG PO; +ZOLOFT50 MG PO
[2016-08-13 00:06] VITALS: BP 143/79
[2016-08-13] MEDS ORDERED: XANAX1 MG PO (00:07)
[2016-08-13] MEDS ORDERED: NORCO 5-325 TA1 EACH PO (02:23)
== END 2016-08-13 02:41 | disposition home or self-care (01) ==
LOC: ED 23:54
DX: S20.219A Contusion of unspecified front wall of thorax, initial encounter (principal); F17.200 Nicotine dependence, unspecified, uncomplicated; Z95.5 Presence of coronary angioplasty implant and graft; I25.10 Atherosclerotic heart disease of native coronary artery without angina pectoris; J44.9 Chronic obstructive pulmonary disease, unspecified; Z88.8 Allergy status to other drugs, medicaments and biological substances; Z79.82 Long term (current) use of aspirin; Z79.899 Other long term (current) drug therapy; W21.03XA Struck by baseball, initial encounter; Y93.64 Activity, baseball; Y92.320 Baseball field as the place of occurrence of the external cause; Y99.9 Unspecified external cause status

== ENCOUNTER 2016-08-31 17:50 | Inpatient (IN) | payer MEDICARE, MEDICAID ==
[~2016-08-31] VITALS: Ht 188 cm; Wt 84.5 kg
[~2016-08-31 17:50] MED LIST changes: +NORCO 5-325 TA1 EACH PO
[2016-08-31 18:02] VITALS: BP 167/101
[2016-08-31] MEDS ORDERED: NEURONTIN800 MG PO (18:05)
[2016-08-31] MEDS ORDERED: ADVAIR DISKUS 21 DSK INH (18:05)
[2016-08-31] MEDS ORDERED: PROTONIX40 MG PO (18:05)
[2016-08-31] MEDS ORDERED: SPIRIVA18 MCG PO (18:05)
[2016-08-31] MEDS ORDERED: ABILIFY20 MG PO (18:06)
[2016-08-31] MEDS ORDERED: PHENOBARBITAL97.2 MG PO (18:06)
[2016-08-31] MEDS ORDERED: BUSPAR15 MG PO (18:06)
[2016-08-31] MEDS ORDERED: IMITREX PO (18:07)
[2016-08-31] MEDS ORDERED: MOTRIN 600 MG E4 TAB PO (18:07)
[2016-08-31 19:39] LABS: BASO % 0.2 % (0.0-1.0); EOS % 0.3 % (1.0-4.0); HEMATOCRIT 35.5 % (42.0-52.0); HEMOGLOBIN 12.4 g/dl (14.0-18.0); IG # 0.1 10*3/uL (0.0-0.1); LYMPH # 1.4 10*3/uL (1.3-4.4); MEAN CELL VOLUME 85.3 fl (80.0-94.0); MEAN CORPUSCULAR HGB 29.8 pg (27.0-31.0); MEAN CORPUSCULAR HGB CONC 34.9 g/dl (33.0-37.0); MEAN PLATELET VOLUME 8.9 fl (9.6-12.3); MONO # 0.9 10*3/uL (0.1-1.0); MONO % 7.6 % (3.0-9.0); NEUT # 9.9 10*3/uL (2.3-7.9); NEUT % 80.4 % (47.0-73.0); PLATELET COUNT AUTOMATED 268 10*3/uL (130-400); RED BLOOD COUNT 4.16 10*6/uL (4.50-5.90); RED CELL DISTRI WIDTH 13.9 % (0-14.5); WHITE BLOOD COUNT 12.4 10*3/uL (4.8-10.8)
[2016-08-31 19:50] LABS: INTERNATIONAL NORM RATIO 0.9 (2.0-3.5)
[2016-08-31 19:59] LABS: ALBUMIN 3.7 gm/dl (3.1-4.5); ALKALINE PHOSPHATASE 98 U/L (45-117); BILIRUBIN, TOTAL 0.7 mg/dl (0.2-1.0); BUN 8 mg/dl (7-24); CARBON DIOXIDE 24 mmol/L (21-32); CHLORIDE 93 mmol/L (98-107); EST GLOM FILT AFRICAN AMERICAN > 60 ml/min; GLUCOSE 109 mg/dL (65-99); MAGNESIUM 1.9 mg/dL (1.5-2.1); POTASSIUM 3.9 mmol/L (3.5-5.1); SGOT/AST 47 IU/L (3-35); SGPT/ALT 78 U/L (12-78); SODIUM 128 mmol/L (136-145); TOTAL PROTEIN 7.5 gm/dL (6.4-8.2)
[2016-08-31 20:00] LABS: TROPONIN I < 0.015 ng/ml (<0.045)
[2016-08-31 23:15] VITALS: BP 152/98
[2016-09-01 00:37] VITALS: BP 154/91
[2016-09-01 01:00] VITALS: BP 121/62
[2016-09-01] MEDS ORDERED: TRILEPTAL300 MG PO (02:29)
[2016-09-01] MEDS ORDERED: PROVENTIL0.09 MG/A1 INH (02:31)
[2016-09-01 02:46] LABS: URINE AMPHETAMINES < 1000 (1000ng/ml); URINE BARBITURATES > 200 (200ng/ml); URINE COCAINE < 300 (300ng/ml)
[2016-09-01 04:00] VITALS: BP 115/75
[2016-09-01 06:24] LABS: BASO % 0.4 % (0.0-1.0); EOS # 0.1 10*3/uL (0.0-0.4); EOS % 0.9 % (1.0-4.0); HEMATOCRIT 36.1 % (42.0-52.0); HEMOGLOBIN 12.4 g/dl (14.0-18.0); LYMPH # 2.7 10*3/uL (1.3-4.4); LYMPH % 38.7 % (27.0-41.0); MEAN CELL VOLUME 87.2 fl (80.0-94.0); MEAN CORPUSCULAR HGB CONC 34.3 g/dl (33.0-37.0); MONO # 0.7 10*3/uL (0.1-1.0); NEUT # 3.5 10*3/uL (2.3-7.9); NEUT % 49.7 % (47.0-73.0); PLATELET COUNT AUTOMATED 234 10*3/uL (130-400); RED BLOOD COUNT 4.14 10*6/uL (4.50-5.90); RED CELL DISTRI WIDTH 14.1 % (0-14.5)
[2016-09-01 06:41] LABS: HEMOGLOBIN A1c 5.6 % (4.8-5.6)
[2016-09-01 06:55] LABS: ALBUMIN 3.4 gm/dl (3.1-4.5); BUN 7 mg/dl (7-24); CARBON DIOXIDE 26 mmol/L (21-32); CHLORIDE 106 mmol/L (98-107); GLUCOSE 101 mg/dL (65-99); MAGNESIUM 2.2 mg/dL (1.5-2.1); POTASSIUM 3.9 mmol/L (3.5-5.1); PROTHROMBIN TIME 10.4 SECONDS (9.0-12.4)
[2016-09-01 06:59] LABS: ALKALINE PHOSPHATASE 80 U/L (45-117); BILIRUBIN, TOTAL 0.7 mg/dl (0.2-1.0); EST GLOM FILT AFRICAN AMERICAN > 60 ml/min; PHOSPHOROUS 2.6 mg/dL (2.5-4.9); SGOT/AST 34 IU/L (3-35); SGPT/ALT 66 U/L (12-78); SODIUM 140 mmol/L (136-145); TOTAL PROTEIN 6.9 gm/dL (6.4-8.2)
[2016-09-01 07:39] LABS: VITAMIN D, 25-HYDROXY 33.7 ng/mL (30-100)
[2016-09-01 07:45] LABS: FOLIC ACID > 24.00 ng/mL (>5.38)
[2016-09-01 08:00] VITALS: BP 125/85
== END 2016-09-01 09:21 | disposition left against medical advice (07) | DRG 894 ==
LOC: ED 17:50 → EDHOLD 23:42 → 4E 23:53 → ICCU 09-01 00:29
PROVIDERS: Emergency Medicine Emergency Medical Services; Family Medicine
DX: F10.239 Alcohol dependence with withdrawal, unspecified (principal); R65.10 Systemic inflammatory response syndrome (SIRS) of non-infectious origin without acute organ dysfunction; E87.1 Hypo-osmolality and hyponatremia; R07.9 Chest pain, unspecified; G40.909 Epilepsy, unspecified, not intractable, without status epilepticus; J44.9 Chronic obstructive pulmonary disease, unspecified; F41.9 Anxiety disorder, unspecified; F60.3 Borderline personality disorder; I25.10 Atherosclerotic heart disease of native coronary artery without angina pectoris; F14.10 Cocaine abuse, uncomplicated; F11.10 Opioid abuse, uncomplicated; E78.5 Hyperlipidemia, unspecified; I10 Essential (primary) hypertension; F12.10 Cannabis abuse, uncomplicated; G43.909 Migraine, unspecified, not intractable, without status migrainosus; G25.81 Restless legs syndrome; D64.9 Anemia, unspecified; R73.9 Hyperglycemia, unspecified; Z53.21 Procedure and treatment not carried out due to patient leaving prior to being seen by health care provider; K21.9 Gastro-esophageal reflux disease without esophagitis; F32.9 Major depressive disorder, single episode, unspecified; G89.29 Other chronic pain; M54.9 Dorsalgia, unspecified; K22.70 Barrett's esophagus without dysplasia; Z82.49 Family history of ischemic heart disease and other diseases of the circulatory system; Z71.6 Tobacco abuse counseling; Z83.3 Family history of diabetes mellitus; Z98.61 Coronary angioplasty status; F17.210 Nicotine dependence, cigarettes, uncomplicated

== ENCOUNTER 2016-09-05 23:39 | Emergency (ER) | payer MEDICARE, MEDICAID ==
[~2016-09-05] VITALS: Ht 187.9 cm; Wt 81.6 kg
[~2016-09-05 23:39] MED LIST changes: +ABILIFY20 MG PO; +BUSPAR15 MG PO; +IMITREX PO; +MOTRIN 600 MG E4 TAB PO; +PHENOBARBITAL97.2 MG PO; +PROVENTIL0.09 MG/A1 INH; +SPIRIVA18 MCG PO; +TRILEPTAL300 MG PO
[2016-09-05 23:40] VITALS: BP 144/93
== END 2016-09-06 01:52 | disposition home or self-care (01) ==
LOC: ED 23:39
DX: S01.01XA Laceration without foreign body of scalp, initial encounter (principal); Z88.8 Allergy status to other drugs, medicaments and biological substances; Z79.82 Long term (current) use of aspirin; Z79.899 Other long term (current) drug therapy; Z87.891 Personal history of nicotine dependence; Y04.0XXA Assault by unarmed brawl or fight, initial encounter; Y93.89 Activity, other specified; Y92.89 Other specified places as the place of occurrence of the external cause; Y99.8 Other external cause status

== ENCOUNTER 2016-09-08 20:22 | Emergency (ER) | payer MEDICARE, MEDICAID ==
[~2016-09-08] VITALS: Ht 187.9 cm; Wt 81.6 kg
[2016-09-08 20:29] VITALS: BP 151/87
[2016-09-08] MEDS ORDERED: K-TAB20 MEQ PO (20:33)
[2016-09-08] MEDS ORDERED: AMOXICILLIN500 M2 PO (21:05)
[2016-09-08] MEDS ORDERED: Motrin,Rufen800 MG PO (21:05)
== END 2016-09-08 20:35 | disposition home or self-care (01) ==
LOC: ED 20:22
DX: S01.511A Laceration without foreign body of lip, initial encounter (principal); F17.200 Nicotine dependence, unspecified, uncomplicated; I10 Essential (primary) hypertension; G43.909 Migraine, unspecified, not intractable, without status migrainosus; Z95.5 Presence of coronary angioplasty implant and graft; E78.5 Hyperlipidemia, unspecified; I25.10 Atherosclerotic heart disease of native coronary artery without angina pectoris; J44.9 Chronic obstructive pulmonary disease, unspecified; Z79.82 Long term (current) use of aspirin; Z88.8 Allergy status to other drugs, medicaments and biological substances; Z79.899 Other long term (current) drug therapy; Y08.89XA Assault by other specified means, initial encounter; Y93.89 Activity, other specified; Y92.9 Unspecified place or not applicable; Y99.9 Unspecified external cause status

== ENCOUNTER 2016-09-15 20:40 | Emergency (ER) | payer MEDICARE, MEDICAID ==
[~2016-09-15] VITALS: Ht 187.9 cm; Wt 81.6 kg
[~2016-09-15 20:40] MED LIST changes: +AMOXICILLIN500 M2 PO; +K-TAB20 MEQ PO
[2016-09-15 20:58] VITALS: BP 145/98
[2016-09-15] MEDS ORDERED: CLINDAMYCIN HC300 MG PO (21:21)
[2016-09-15] MEDS ORDERED: PERCOCET 325 MG1 TA2 PO (21:21)
[2016-09-15] MEDS ORDERED: THIAMINE HCL100 MG PO (21:21)
== END 2016-09-15 21:36 | disposition home or self-care (01) ==
LOC: ED 20:40
DX: K04.01 Reversible pulpitis (principal); K02.9 Dental caries, unspecified; F17.200 Nicotine dependence, unspecified, uncomplicated; Z88.8 Allergy status to other drugs, medicaments and biological substances; Z79.82 Long term (current) use of aspirin

== ENCOUNTER → 2016-09-28 | Emergency (ER) | payer MEDICARE, MEDICAID ==
[~2016-09-28] VITALS: Ht 187.9 cm; Wt 83.9 kg
[~2016-09-28] MED LIST changes: +CLINDAMYCIN HC300 MG PO; +THIAMINE HCL100 MG PO
[2016-09-28 12:27] VITALS: BP 153/84
== END ==
LOC: ED 12:25
DX: S62.101A Fracture of unspecified carpal bone, right wrist, initial encounter for closed fracture (principal); I25.10 Atherosclerotic heart disease of native coronary artery without angina pectoris; F14.10 Cocaine abuse, uncomplicated; J44.9 Chronic obstructive pulmonary disease, unspecified; F11.10 Opioid abuse, uncomplicated; F12.10 Cannabis abuse, uncomplicated; G43.909 Migraine, unspecified, not intractable, without status migrainosus; G40.909 Epilepsy, unspecified, not intractable, without status epilepticus; F17.200 Nicotine dependence, unspecified, uncomplicated; Z79.82 Long term (current) use of aspirin; Z88.8 Allergy status to other drugs, medicaments and biological substances; W11.XXXA Fall on and from ladder, initial encounter; Y93.89 Activity, other specified; Y92.89 Other specified places as the place of occurrence of the external cause; Y99.8 Other external cause status

== ENCOUNTER 2016-10-09 01:53 | Emergency (ER) | payer MEDICARE, MEDICAID ==
[~2016-10-09] VITALS: Ht 187.9 cm; Wt 81.6 kg
[2016-10-09 02:01] VITALS: BP 127/85
== END 2016-10-09 03:06 | disposition home or self-care (01) ==
LOC: ED 01:53
DX: M25.531 Pain in right wrist (principal); F17.200 Nicotine dependence, unspecified, uncomplicated; I10 Essential (primary) hypertension; E78.5 Hyperlipidemia, unspecified; I25.10 Atherosclerotic heart disease of native coronary artery without angina pectoris; Z95.5 Presence of coronary angioplasty implant and graft

== ENCOUNTER 2016-10-20 01:28 | Emergency (ER) | payer MEDICARE, MEDICAID ==
[~2016-10-20] VITALS: Ht 187.9 cm; Wt 86.2 kg
[2016-10-20 01:38] VITALS: BP 142/120
[2016-10-20] MEDS ORDERED: ULTRAM50 MG PO (02:48)
== END 2016-10-20 03:17 | disposition home or self-care (01) ==
LOC: ED 01:28
DX: S62.001A Unspecified fracture of navicular [scaphoid] bone of right wrist, initial encounter for closed fracture (principal); I25.10 Atherosclerotic heart disease of native coronary artery without angina pectoris; I10 Essential (primary) hypertension; F14.10 Cocaine abuse, uncomplicated; J44.9 Chronic obstructive pulmonary disease, unspecified; F11.10 Opioid abuse, uncomplicated; E78.5 Hyperlipidemia, unspecified; F12.10 Cannabis abuse, uncomplicated; G43.909 Migraine, unspecified, not intractable, without status migrainosus; G40.909 Epilepsy, unspecified, not intractable, without status epilepticus; F17.200 Nicotine dependence, unspecified, uncomplicated; Z88.8 Allergy status to other drugs, medicaments and biological substances; Z79.82 Long term (current) use of aspirin; W01.0XXA Fall on same level from slipping, tripping and stumbling without subsequent striking against object, initial encounter; Y93.89 Activity, other specified; Y92.89 Other specified places as the place of occurrence of the external cause; Y99.8 Other external cause status

== ENCOUNTER 2016-10-23 23:43 | Inpatient (IN) | payer MEDICARE, MEDICAID ==
[~2016-10-23] VITALS: Ht 187.9 cm; Wt 74.6 kg
--- NOTE | ~2016-10-23 | EKG ---
[place], [place] ELECTROCARDIOGRAM REPORT NAME: SALO FISH UNIT #: [id number] ROOM: 424 DOCTOR: FREDDIE SINGH,XIOMARA BIRTHDATE: [birth year] DOS: 10/24/2016 TIME: a.m. FINDINGS: 1. Sinus tachycardia. 2. Probable atrial enlargement. 3. Possible old anterolateral infarction, age undetermined. XIOMARA FRAZIER MD CM:EKGRPT:ELECTROCARDIOGRAM REPORT 1240 1450 XIOMARA FRAZIER MD
[2016-10-23 23:51] VITALS: BP 137/77
[2016-10-24] VITALS (7 sets, daily range): BP systolic 116–138; BP diastolic 65–82
[2016-10-24 00:24] LABS: BASO % 0.2 % (0.0-1.0); EOS % 0.3 % (1.0-4.0); HEMOGLOBIN 12.2 g/dl (14.0-18.0); LYMPH # 1.2 10*3/uL (1.3-4.4); LYMPH % 8.8 % (27.0-41.0); MEAN CELL VOLUME 89.8 fl (80.0-94.0); MEAN CORPUSCULAR HGB 29.6 pg (27.0-31.0); MEAN PLATELET VOLUME 9.5 fl (9.6-12.3); MONO # 0.7 10*3/uL (0.1-1.0); MONO % 4.9 % (3.0-9.0); NEUT # 11.2 10*3/uL (2.3-7.9); NEUT % 85.4 % (47.0-73.0); PLATELET COUNT AUTOMATED 215 10*3/uL (130-400); RED BLOOD COUNT 4.12 10*6/uL (4.50-5.90); RED CELL DISTRI WIDTH 13.7 % (0-14.5); WHITE BLOOD COUNT 13.2 10*3/uL (4.8-10.8)
[2016-10-24 00:34] LABS: ACT PARTIAL THROMBO TIME 26.8 SECONDS (20.8-31.5)
[2016-10-24 00:39] LABS: ALBUMIN 3.6 gm/dl (3.1-4.5); ALKALINE PHOSPHATASE 94 U/L (45-117); BUN 6 mg/dl (7-24); CHLORIDE 106 mmol/L (98-107); CREATININE 0.86 mg/dL (0.70-1.30); LIPASE 152 U/L (73-393); MAGNESIUM 1.7 mg/dL (1.5-2.1); POTASSIUM 4.1 mmol/L (3.5-5.1); SGOT/AST 74 IU/L (3-35); SGPT/ALT 81 U/L (12-78); SODIUM 139 mmol/L (136-145); TOTAL PROTEIN 7.6 gm/dL (6.4-8.2)
[2016-10-24 00:40] LABS: TROPONIN I < 0.015 ng/ml (<0.045)
[2016-10-24 02:46] LABS: TROPONIN I < 0.015 ng/ml (<0.045)
--- NOTE | 2016-10-24 03:20 | NUR ---
A 51, admitted to ICCU, under the services of BEBETO Jones DO with a diagnosis of DT, ETOH WITHDRAWL, SEIZURES, SEVERE SEPSIS. Chief complaint is ETOH WITHDRAWL, SEIZURE AT HOME. Patient arrived via stretcher from ER. Monitor applied. Initial assessment completed. Vital signs taken and recorded. BEBETO JONES DO notified of admission to the unit. Orders received. See assessment for past medical history, medications and allergies. Patient and/or family oriented to unit. [facility]U visitation policy reviewed. Clothing/patient valuable form completed. MARINA MAZARIEGOS
--- NOTE | 2016-10-24 03:25 | NUR ---
PT KEEPS FALLING ASLEEP AND RN CANNOT VERIFY HOME MEDS.
[2016-10-24 03:32] LABS: BILIRUBIN NEGATIVE (NEGATIVE); BLOOD NEGATIVE (NEGATIVE); CLARITY CLEAR (CLEAR); COLOR YELLOW (YELLOW); GLUCOSE NEGATIVE (NEGATIVE); KETONE NEGATIVE (NEGATIVE); LEUKO ESTERASE NEGATIVE (NEGATIVE); NITRITE NEGATIVE (NEGATIVE); SPECIFIC GRAVITY <= 1.005 (1.005-1.030); UROBILINOGEN 0.2 E.U./dl (0.2-1.0)
[2016-10-24 03:41] LABS: URINE AMPHETAMINES < 1000 (1000ng/ml); URINE BARBITURATES < 200 (200ng/ml); URINE BENZODIAZEPINES < 200 (200ng/ml); URINE CANNABINOIDS (THC) < 50 (50ng/ml); URINE COCAINE > 300 (300ng/ml); URINE METHADONE < 300 (300ng/ml); URINE OPIATES < 300 (300ng/ml)
[2016-10-24 03:43] LABS: URINE PHENCYCLIDINE < 25 (25ng/ml)
[2016-10-24 03:44] LABS: WBC 0-2 wbc/hpf (0-5)
--- NOTE | 2016-10-24 05:45 | NUR ---
SCHEDULED LIBRIUM GIVEN.
[2016-10-24 05:52] LABS: ALBUMIN 2.9 gm/dl (3.1-4.5); ALKALINE PHOSPHATASE 85 U/L (45-117); BASO % 0.3 % (0.0-1.0); BUN 7 mg/dl (7-24); CHLORIDE 112 mmol/L (98-107); CHOLESTEROL 126 mg/dL (<200); CREATININE 0.66 mg/dL (0.70-1.30); EOS # 0.1 10*3/uL (0.0-0.4); EOS % 0.7 % (1.0-4.0); HDL CHOLESTEROL 36 mg/dl (40-60); HEMATOCRIT 33.3 % (42.0-52.0); HEMOGLOBIN 10.9 g/dl (14.0-18.0); LDL CHOLESTEROL 76 mg/dL (9-159); LYMPH # 1.7 10*3/uL (1.3-4.4); LYMPH % 18.3 % (27.0-41.0); MAGNESIUM 1.8 mg/dL (1.5-2.1); MEAN CELL VOLUME 90.5 fl (80.0-94.0); MEAN CORPUSCULAR HGB 29.6 pg (27.0-31.0); MEAN CORPUSCULAR HGB CONC 32.7 g/dl (33.0-37.0); MEAN PLATELET VOLUME 9.8 fl (9.6-12.3); MONO # 1.1 10*3/uL (0.1-1.0); MONO % 11.2 % (3.0-9.0); NEUT # 6.5 10*3/uL (2.3-7.9); NEUT % 69.3 % (47.0-73.0); PHOSPHOROUS 4.1 mg/dL (2.5-4.9); PLATELET COUNT AUTOMATED 180 10*3/uL (130-400); RED BLOOD COUNT 3.68 10*6/uL (4.50-5.90); RED CELL DISTRI WIDTH 13.7 % (0-14.5); SGOT/AST 53 IU/L (3-35); SGPT/ALT 63 U/L (12-78); SODIUM 144 mmol/L (136-145); TOTAL PROTEIN 6.4 gm/dL (6.4-8.2); TRIGLYCERIDES 68 mg/dl (<150); TROPONIN I < 0.015 ng/ml (<0.045); VLDL CHOLESTEROL 14 mg/dL (6-40); WHITE BLOOD COUNT 9.4 10*3/uL (4.8-10.8)
[2016-10-24 06:18] LABS: INTERNATIONAL NORM RATIO 1.1 (2.0-3.5)
[2016-10-24 06:30] LABS: VITAMIN D, 25-HYDROXY 38.2 ng/mL (30-100)
[2016-10-24] MEDS ORDERED: THIAMINE HCL100 MG PO (08:18)
--- NOTE | 2016-10-24 08:36 | NUR ---
Awakened for VS. States just dosen't feel well , Medication list reviewed, pt. states he is out of all meds. Requests Tramadol for fx wrist diagnosed 09/28. in to [facility].
--- NOTE | 2016-10-24 09:53 | NUR ---
Medicated for generalized c/o discomfort , lack of appetite, anxiety . Stated " maybe if this works I'll try to eat something"
--- NOTE | 2016-10-24 11:10 | NUR ---
Dr. Banks in to [facility].
--- NOTE | 2016-10-24 12:08 | NUR ---
Ct ordered, Pt. declines to have done. Stating that he just dosen't feel good and is not getting OOB, states that if he feels better after he eats he will go. Infornmed that he needed to be NPO prior to testing and it would be best to get it done now. Continues to decline. Ct aware. Dr. Roper was notified.
--- NOTE | 2016-10-24 20:00 | NUR ---
Patient resting quietly with no c/o discomfort. Respirations easy and regular. Vital signs stable. No overt distress. MARINA MAZARIEGOS
[2016-10-25] VITALS: BP 142/86
--- NOTE | 2016-10-25 | NUR ---
Patient resting quietly with no c/o discomfort. Respirations easy and regular. Vital signs stable. No overt distress. MARINA MAZARIEGOS
[2016-10-25 04:00] VITALS: BP 140/88
--- NOTE | 2016-10-25 05:22 | NUR ---
C/O ANXIETY, LIBRIUM RECENTLY GIVEN. MILD TREMORS NOTED.
--- NOTE | 2016-10-25 06:18 | NUR ---
24 HR chart check completed.
[2016-10-25 06:33] LABS: HEMATOCRIT 36.6 % (42.0-52.0); HEMOGLOBIN 12.1 g/dl (14.0-18.0); LYMPH # 0.7 10*3/uL (1.3-4.4); LYMPH % 11.4 % (27.0-41.0); MEAN CELL VOLUME 89.1 fl (80.0-94.0); MEAN CORPUSCULAR HGB 29.4 pg (27.0-31.0); MEAN CORPUSCULAR HGB CONC 33.1 g/dl (33.0-37.0); MEAN PLATELET VOLUME 10.6 fl (9.6-12.3); MONO # 0.1 10*3/uL (0.1-1.0); NEUT # 5.1 10*3/uL (2.3-7.9); NEUT % 86.1 % (47.0-73.0); PLATELET COUNT AUTOMATED 186 10*3/uL (130-400); RED BLOOD COUNT 4.11 10*6/uL (4.50-5.90); RED CELL DISTRI WIDTH 13.5 % (0-14.5)
[2016-10-25 06:52] LABS: ALBUMIN 2.8 gm/dl (3.1-4.5); BUN 13 mg/dl (7-24); CHLORIDE 112 mmol/L (98-107); CREATININE 0.65 mg/dL (0.70-1.30); POTASSIUM 3.8 mmol/L (3.5-5.1); SGOT/AST 35 IU/L (3-35); SGPT/ALT 57 U/L (12-78); SODIUM 140 mmol/L (136-145)
[2016-10-25 06:54] LABS: ALKALINE PHOSPHATASE 83 U/L (45-117); TOTAL PROTEIN 6.7 gm/dL (6.4-8.2)
[2016-10-25 08:00] VITALS: BP 156/87
--- NOTE | 2016-10-25 08:33 | NUR ---
PATIENT REQUESTING SOMETHING FOR ANXIETY AND LEG CRAMPS. RN TOOK VISTARIL AND ROBAXIN IN TO PATIENT. PATIENT THEN ASKED RN TO SEE WHAT MEDICATIONS HE HAS AVAILABLE TO HIM. AFTER RN WENT OVER ALL MEDICATIONS. PATIENT REQUESTED TO HAVE ATIVAN INSTEAD OF VISTARIL. PATIENT THEN MEDICATED WITH ATIVAN 2MG IV AND ROBAXIN PER PRN ORDERS. WILL CONTINUE TO MONITOR.
--- NOTE | 2016-10-25 10:00 | NUR ---
PATIENT REQUESTED TWO VANILLA MILKSHAKES. RN ORDERED FOR THE PATIENT. AND PATIENT DRANK BOTH WHEN THEY ARRIVED TO THE FLOOR.
[2016-10-25 12:00] VITALS: BP 143/86
--- NOTE | 2016-10-25 12:16 | NUR ---
PATIENT MEDICATED WITH ONE TIME DOSE OF ATIVAN 1MG PO. WILL CONTINUE TO MONITOR.
--- NOTE | 2016-10-25 13:31 | NUR ---
PT MEDICATED WITH PRN VISTARIL FOR INCREASED ANXIETY. WILL CONTINUE TO MONITOR.
--- NOTE | 2016-10-25 14:35 | NUR ---
1MG OF IV ATIVAN WASTED WITH SABRA MARKER RN AFTER THIS NURSE ABRAHAN IT UP AND SQUIRTED 1MG FROM SYRINGE ON COMPUTER ON WHEELS. 1 MG GIVEN. 2ND DOSE PULLED FROM PYXIS AND 1 MG GIVEN WITH ONE WASTED WITH SABRA MARKER RN. 2 TOTAL MG GIVEN PER ORDER.
[2016-10-25 16:00] VITALS: BP 144/70
--- NOTE | 2016-10-25 16:30 | NUR ---
AFTER CALLING THE AGRICULTURAL SCIENCE PROFESSOR ABOUT NOT GETTING ATIVAN 2 MG IV Q2H THE AGRICULTURAL SCIENCE PROFESSOR CALLED AND THIS NURSE CALLED DR TUTTLE ABOUT THE MEDICATION BEING REQUESTED. PER DR Helene TUTTLE HE IS NOT COMING BACK TO SEE THE PATIENT HE EXPLAINED ALREADY THIS AM THAT HE WOULD GIVE HIM 1 EXTRA DOSE (GIVEN EARLIER THIS AM WHILE STILL IN ICU) BUT WOULD NOT INCREASE THE DOSE. HE SAID WE GO THROUGH THIS EVERY TIME. REQUESTED THE RN INFORM THE PATIENT HIS NURSE DIRECTOR THAT HE IS NOT COMING UP (CARING FOR OTHER PATIENTS) AND THAT HE IS NOT TRANSFERRING HIM OUT (NO JUSTIFIABLE REASON) AND HE IS NOT INCREASING THE MEDICATION. THIS RN ENTERED THE PATIENT ROOM AND TOLD THE PATIENT WHO THEN STARTED YELLING AFTER HANGING UP THE PHONE THAT HE IS HALLUCINATING, HAVING TREMORS, AND DIAPHORETIC. PER THE PATIENT I ALWAYS GET 2 MG EVERY 2 HOURS WHEN I AM HERE AND THIS IS JUST NOT ENOUGH. PT REQUESTED TRANSFER AND AGAIN THIS RN TOLD HIM THAT THE DOCOTOR IS NOT TRANSFERRING ADN IS NOT GOING TO INCREASE THE MEDICATION. AGRICULTURAL SCIENCE PROFESSOR THEN ENTERED THE ROOM UPON HEARING THE CONVERSATION.
--- NOTE | 2016-10-25 17:00 | NUR ---
PT AGITATED AT THIS TIME. PRN MEDS EXHAUSTED. HEALTHCARE TRANSLATOR IN TO SPEAK WITH PATIENT AFTER HE CALLED HER.
--- NOTE | 2016-10-25 18:22 | NUR ---
PT ASLEEP AT THIS TIME.
--- NOTE | 2016-10-25 19:45 | NUR ---
PATIENT REQUESTING ATIVAN AT THIS TIME. MADE AWARE THAT IT IS NOT DUE FOR ANOTHER HOUR. STATES HE IS WITHDRAWING AND NEEDS SOMETHING.
[2016-10-25 20:00] VITALS: BP 120/98; BP 151/122
--- NOTE | 2016-10-25 20:07 | NUR ---
PATIENT MEDICATED WITH PRN ATIVAN FOR C/O ANXIETY
--- NOTE | 2016-10-25 20:55 | NUR ---
WOMAN WALKED INTO PATIENT'S ROOM AND SHUT THE DOOR BEHIND HER. AFTER KNOCKING THIS RN AND MAINOR SANCHEZ ENTERED ROOM AND VISITOR AND PATIENT WERE SITTING ON THE SIDE OF THE BED. VISITOR SAID SHE WAS HIS ROOMMATE AND WAS ONLY STAYING A COUPLE MINUTES. ADVISED TO LEAVE THE DOOR OPEN. WILL MONITOR
--- NOTE | 2016-10-25 21:41 | NUR ---
PATIENT STATES HE IS SEEING "DEMONIC PEOPLE AND HEARING HIS DAD WHO IS ". WILL LET THE DR KNOW. MEDICAETD WITH DOMITILA VISTARIL FOR ANXIETY.
--- NOTE | 2016-10-25 21:46 | NUR ---
PATIENT'S BATHROOM SMELLS LIKE CIGARETTES. PATIENT STATES IT WAS NOT HIM SMOKING IT WAS HIS VISITOR. WILL LET ROTARY DRILLER HELPER KNOW.
--- NOTE | 2016-10-25 21:51 | NUR ---
COUNTER TACKER AWARE OF RESTROOM SMELLING LIKE CIGARETTE SMOKE
--- NOTE | 2016-10-25 21:52 | NUR ---
DR COBIAN AWARE OF PATIENT SEEING "DEMONIC PEOPLE AND HEARING HIS DAD". 1MG OF ATIVAN ORDERED NOW. ALSO MADE AWARE OF PATIENT SMOKING IN THE RESTROOM
--- NOTE | 2016-10-25 22:09 | NUR ---
PATIENT MEDICATED WITH ONE TIME ATIVAN PER ORDER.
--- NOTE | 2016-10-25 22:45 | NUR ---
PATIENT CALLED OUT TO NURSES STATION STATING HE WANTS TO LEAVE. AFTER ENTERING PATIENT'S ROOM HE STATES HE IS LEAVING BECAUSE HE CANNOT GET THE HELP HE NEEDS HERE. PATIENT IS ALERT AND ORIENTED X3. EDUCATED ON THE IMPORTANCE OF STAYING DUE TO WITHDRAWS. STATES HE IS NOT STAYING AND HIS RIDE WILL PICK HIM UP IN 1O MINUTES. DR COBIAN AWARE. BUSINESS MANAGEMENT CONSULTANT AWARE. BOTH IV HEP LOCKS WERE REMOVED WITH CATHETER INTACT. NO BLEEDING NOTED. MONITOR REMOVED. PATIENT AMBULATED TO ELEVATOR WITH BELONGINGS INTACT.
== END 2016-10-25 23:45 | disposition left against medical advice (07) | DRG 871 ==
LOC: ED 23:43 → EDHOLD 10-24 01:47 → ICCU 10-24 02:32 → 4E 10-25 12:23
PROVIDERS: Hospitalist; Student in an Organized Health Care Education/Training Program; ADMIT Emergency Medicine
DX: A41.9 Sepsis, unspecified organism (principal); J18.9 Pneumonia, unspecified organism; F10.231 Alcohol dependence with withdrawal delirium; J44.0 Chronic obstructive pulmonary disease with (acute) lower respiratory infection; J44.1 Chronic obstructive pulmonary disease with (acute) exacerbation; F33.9 Major depressive disorder, recurrent, unspecified; R65.20 Severe sepsis without septic shock; F14.10 Cocaine abuse, uncomplicated; I25.10 Atherosclerotic heart disease of native coronary artery without angina pectoris; I10 Essential (primary) hypertension; E78.5 Hyperlipidemia, unspecified; F19.90 Other psychoactive substance use, unspecified, uncomplicated; D64.9 Anemia, unspecified; G25.81 Restless legs syndrome; G43.909 Migraine, unspecified, not intractable, without status migrainosus; Z53.21 Procedure and treatment not carried out due to patient leaving prior to being seen by health care provider; K21.9 Gastro-esophageal reflux disease without esophagitis; K44.9 Diaphragmatic hernia without obstruction or gangrene; Z88.8 Allergy status to other drugs, medicaments and biological substances; Z87.81 Personal history of (healed) traumatic fracture; Z95.9 Presence of cardiac and vascular implant and graft, unspecified; Z83.3 Family history of diabetes mellitus; Z82.49 Family history of ischemic heart disease and other diseases of the circulatory system; Z72.0 Tobacco use; Z82.3 Family history of stroke; Z79.82 Long term (current) use of aspirin; Z79.899 Other long term (current) drug therapy

== ENCOUNTER 2016-10-28 05:30 | Emergency (ER) | payer MEDICARE, MEDICAID ==
[~2016-10-28] VITALS: Ht 177.8 cm; Wt 83.9 kg
[2016-10-28 05:38] VITALS: BP 115/86
== END 2016-10-28 06:10 | disposition left against medical advice (07) ==
LOC: ED 05:30
DX: S60.221A Contusion of right hand, initial encounter (principal); I25.10 Atherosclerotic heart disease of native coronary artery without angina pectoris; J44.9 Chronic obstructive pulmonary disease, unspecified; K21.9 Gastro-esophageal reflux disease without esophagitis; F11.10 Opioid abuse, uncomplicated; E78.5 Hyperlipidemia, unspecified; I10 Essential (primary) hypertension; F12.10 Cannabis abuse, uncomplicated; G43.909 Migraine, unspecified, not intractable, without status migrainosus; G40.909 Epilepsy, unspecified, not intractable, without status epilepticus; F14.10 Cocaine abuse, uncomplicated; Z88.8 Allergy status to other drugs, medicaments and biological substances; Z79.82 Long term (current) use of aspirin; Z79.899 Other long term (current) drug therapy; W51.XXXA Accidental striking against or bumped into by another person, initial encounter; Y93.89 Activity, other specified; Y92.89 Other specified places as the place of occurrence of the external cause; Y99.8 Other external cause status

== ENCOUNTER 2016-11-08 17:50 | Emergency (ER) | payer MEDICARE, MEDICAID ==
[~2016-11-08] VITALS: Wt 63.5 kg
[2016-11-08 17:50] VITALS: BP 120/68
[2016-11-08 18:23] LABS: BASO # 0.1 10*3/uL (0.0-0.1); BASO % 0.5 % (0.0-1.0); EOS # 0.1 10*3/uL (0.0-0.4); EOS % 0.8 % (1.0-4.0); HEMATOCRIT 36.8 % (42.0-52.0); HEMOGLOBIN 12.1 g/dl (14.0-18.0); LYMPH # 3.4 10*3/uL (1.3-4.4); LYMPH % 26.6 % (27.0-41.0); MEAN CELL VOLUME 90.4 fl (80.0-94.0); MEAN CORPUSCULAR HGB 29.7 pg (27.0-31.0); MEAN CORPUSCULAR HGB CONC 32.9 g/dl (33.0-37.0); MEAN PLATELET VOLUME 9.8 fl (9.6-12.3); MONO % 7.5 % (3.0-9.0); NEUT # 8.3 10*3/uL (2.3-7.9); NEUT % 64.2 % (47.0-73.0); PLATELET COUNT AUTOMATED 247 10*3/uL (130-400); RED BLOOD COUNT 4.07 10*6/uL (4.50-5.90); RED CELL DISTRI WIDTH 14.3 % (0-14.5); WHITE BLOOD COUNT 12.9 10*3/uL (4.8-10.8)
[2016-11-08 18:34] LABS: URINE AMPHETAMINES < 1000 (1000ng/ml); URINE BARBITURATES > 200 (200ng/ml); URINE BENZODIAZEPINES > 200 (200ng/ml); URINE CANNABINOIDS (THC) > 50 (50ng/ml); URINE COCAINE > 300 (300ng/ml); URINE METHADONE < 300 (300ng/ml); URINE OPIATES < 300 (300ng/ml)
[2016-11-08 18:38] LABS: ALBUMIN 3.4 gm/dl (3.1-4.5); ALKALINE PHOSPHATASE 122 U/L (45-117); BUN 7 mg/dl (7-24); CHLORIDE 104 mmol/L (98-107); CREATININE 0.81 mg/dL (0.70-1.30); POTASSIUM 3.6 mmol/L (3.5-5.1); SGOT/AST 37 IU/L (3-35); SGPT/ALT 42 U/L (12-78); SODIUM 140 mmol/L (136-145); TOTAL PROTEIN 7.7 gm/dL (6.4-8.2)
[2016-11-08 18:42] LABS: URINE PHENCYCLIDINE < 25 (25ng/ml)
== END 2016-11-08 20:07 | disposition left against medical advice (07) ==
LOC: ED 17:50
PROVIDERS: Emergency Medicine
DX: F19.10 Other psychoactive substance abuse, uncomplicated (principal); F10.129 Alcohol abuse with intoxication, unspecified; I10 Essential (primary) hypertension; I25.10 Atherosclerotic heart disease of native coronary artery without angina pectoris; J44.9 Chronic obstructive pulmonary disease, unspecified; E78.5 Hyperlipidemia, unspecified; K21.9 Gastro-esophageal reflux disease without esophagitis; G43.909 Migraine, unspecified, not intractable, without status migrainosus; F17.200 Nicotine dependence, unspecified, uncomplicated; Z95.5 Presence of coronary angioplasty implant and graft; Z88.8 Allergy status to other drugs, medicaments and biological substances; Z79.82 Long term (current) use of aspirin

== ENCOUNTER 2016-11-17 00:36 | Inpatient (IN) | payer MEDICARE, MEDICAID ==
[~2016-11-17] VITALS: Ht 187.9 cm; Wt 75.4 kg
[2016-11-17 00:54] LABS: BASO % 0.2 % (0.0-1.0); EOS # 0.1 10*3/uL (0.0-0.4); EOS % 1.1 % (1.0-4.0); HEMATOCRIT 34.4 % (42.0-52.0); HEMOGLOBIN 11.5 g/dl (14.0-18.0); LYMPH # 2.6 10*3/uL (1.3-4.4); MEAN CELL VOLUME 89.8 fl (80.0-94.0); MEAN CORPUSCULAR HGB CONC 33.4 g/dl (33.0-37.0); MEAN PLATELET VOLUME 9.6 fl (9.6-12.3); MONO # 1.5 10*3/uL (0.1-1.0); NEUT # 5.6 10*3/uL (2.3-7.9); NEUT % 57.1 % (47.0-73.0); PLATELET COUNT AUTOMATED 290 10*3/uL (130-400); RED BLOOD COUNT 3.83 10*6/uL (4.50-5.90); WHITE BLOOD COUNT 9.8 10*3/uL (4.8-10.8)
[2016-11-17 00:55] VITALS: BP 136/80
[2016-11-17 01:12] LABS: ALBUMIN 3.3 gm/dl (3.1-4.5); ALKALINE PHOSPHATASE 86 U/L (45-117); BUN 12 mg/dl (7-24); CHLORIDE 101 mmol/L (98-107); CREATININE 0.83 mg/dL (0.70-1.30); SGOT/AST 40 IU/L (3-35); SGPT/ALT 36 U/L (12-78); SODIUM 133 mmol/L (136-145); TOTAL PROTEIN 7.6 gm/dL (6.4-8.2)
[2016-11-17 01:13] LABS: ACETAMINOPHEN (TYLENOL) < 2.0 ug/ml (10-30); TROPONIN I < 0.015 ng/ml (<0.045)
--- NOTE | 2016-11-17 01:14 | NUR ---
PT YELLING OUT AND USING FOUL LANGUAGE. DEMANDING ATIVAN
[2016-11-17 01:39] LABS: BILIRUBIN NEGATIVE (NEGATIVE); BLOOD NEGATIVE (NEGATIVE); CLARITY SL CLOUDY (CLEAR); COLOR YELLOW (YELLOW); GLUCOSE NEGATIVE (NEGATIVE); KETONE TRACE (NEGATIVE); LEUKO ESTERASE NEGATIVE (NEGATIVE); NITRITE NEGATIVE (NEGATIVE); PH 5.5 (5.0-9.0); UROBILINOGEN 0.2 E.U./dl (0.2-1.0)
[2016-11-17 01:47] LABS: WBC 0-2 wbc/hpf (0-5)
[2016-11-17 01:48] LABS: BACTERIA 2+; EPITHELIAL CELLS 0-2; HYALINE CAST 15-20
[2016-11-17 01:50] LABS: URINE AMPHETAMINES < 1000 (1000ng/ml); URINE BARBITURATES > 200 (200ng/ml); URINE BENZODIAZEPINES > 200 (200ng/ml); URINE CANNABINOIDS (THC) > 50 (50ng/ml); URINE COCAINE > 300 (300ng/ml); URINE METHADONE < 300 (300ng/ml); URINE OPIATES < 300 (300ng/ml)
[2016-11-17 01:52] LABS: URINE PHENCYCLIDINE < 25 (25ng/ml)
--- NOTE | 2016-11-17 02:05 | NUR ---
PT MEDICATED PER EMAR. RESTING COMFORTABLY IN BED.
--- NOTE | 2016-11-17 04:15 | NUR ---
A 51, admitted to 4E, under the services of SUPA Brandt DO with a diagnosis of SUBSTANCE ABUSE. Chief complaint is SUBSTANCE ABUSE. Patient arrived via wheel chair from ER. Monitor applied. Initial assessment completed. Vital signs taken and recorded. SUPA BRANDT DO notified of admission to the unit. Orders received. See assessment for past medical history, medications and allergies. Patient and/or family oriented to unit. visitation policy reviewed. Clothing/patient valuable form completed. DANIEL GRAHAM
[2016-11-17 04:33] VITALS: BP 144/63
--- NOTE | 2016-11-17 04:42 | NUR ---
MEDICATED WITH PRN ATIVAN FOR ANXIETY AND TREMORS
[2016-11-17] MEDS ORDERED: SUBOXONE 12 MG1 EACH SL (05:43)
[2016-11-17] MEDS ORDERED: ADVAIR 250/501 EA INH (05:43)
--- NOTE | 2016-11-17 05:43 | NUR ---
MED REC UP TO DATE PER PATIENT
--- NOTE | 2016-11-17 05:51 | NUR ---
SLEEPING. NO DISTRESS NOTED. EARLIER ATIVAN APPEARS TO BE EFFECTIVE. CALL LIGHT IN REACH.
[2016-11-17 08:00] VITALS: BP 128/86
--- NOTE | 2016-11-17 08:46 | NUR ---
PATIENT GIVEN PRN ATIVAN VIA IV, ROBAXAN PO, AND VISTARIL PO DUE TO ANXIETY AND FINE TREMORS. WILL MONITOR EFFECTIVENESS.
[2016-11-17 08:48] LABS: BASO % 0.4 % (0.0-1.0); EOS # 0.3 10*3/uL (0.0-0.4); EOS % 4.1 % (1.0-4.0); HEMATOCRIT 33.9 % (42.0-52.0); HEMOGLOBIN 11.1 g/dl (14.0-18.0); LYMPH # 2.1 10*3/uL (1.3-4.4); LYMPH % 31.5 % (27.0-41.0); MEAN CELL VOLUME 90.9 fl (80.0-94.0); MEAN CORPUSCULAR HGB 29.8 pg (27.0-31.0); MEAN CORPUSCULAR HGB CONC 32.7 g/dl (33.0-37.0); MEAN PLATELET VOLUME 9.8 fl (9.6-12.3); MONO # 1.2 10*3/uL (0.1-1.0); MONO % 18.3 % (3.0-9.0); NEUT # 3.1 10*3/uL (2.3-7.9); NEUT % 45.3 % (47.0-73.0); PLATELET COUNT AUTOMATED 256 10*3/uL (130-400); RED BLOOD COUNT 3.73 10*6/uL (4.50-5.90); RED CELL DISTRI WIDTH 14.2 % (0-14.5); WHITE BLOOD COUNT 6.8 10*3/uL (4.8-10.8)
[2016-11-17 09:22] LABS: ALBUMIN 2.9 gm/dl (3.1-4.5); BUN 11 mg/dl (7-24); CHLORIDE 105 mmol/L (98-107); CREATININE 0.68 mg/dL (0.70-1.30); MAGNESIUM 2.1 mg/dL (1.5-2.1); POTASSIUM 4.7 mmol/L (3.5-5.1); SGOT/AST 40 IU/L (3-35); SGPT/ALT 35 U/L (12-78); SODIUM 139 mmol/L (136-145)
[2016-11-17 09:23] LABS: ALKALINE PHOSPHATASE 87 U/L (45-117); PHOSPHOROUS 3.2 mg/dL (2.5-4.9); TOTAL PROTEIN 6.9 gm/dL (6.4-8.2)
[2016-11-17 12:00] VITALS: BP 124/76
--- NOTE | 2016-11-17 13:35 | NUR ---
[facility] CALLED. MED REC UP TO DATE. DR. MERRITT NOTIFIED.
[2016-11-17 16:00] VITALS: BP 134/76
[2016-11-17 20:00] VITALS: BP 130/72
--- NOTE | 2016-11-17 20:00 | NUR ---
ambulating to nurse's station, repeatedly asking for iv ativan informed that it was too soon to receive. patient agitated. encouraged to return to room.
--- NOTE | 2016-11-17 22:27 | NUR ---
Patient displaying withdrawal symptoms, including: irritability, anxiousness, restlessness and agitation, complicated by impulsive behavior. Scheduled/PRN medications provided, see emar. Will continue to monitor medication effectiveness.
--- NOTE | 2016-11-18 | NUR ---
Patient sleeping. Responding to scheduled medications with fewer complaints of pain and anxiety.
[2016-11-18 04:00] VITALS: BP 128/76
--- NOTE | 2016-11-18 04:08 | NUR ---
Patient displaying withdrawal symptoms, including: irritability, anxiousness, restlessness and agitation, complicated by impulsive behavior. Patient scores a 5 on the withdrawal scale. Scheduled/PRN medications provided, doctor notified of patient's agitation and AMA potential. Will continue to monitor medication effectiveness.
--- NOTE | 2016-11-18 06:00 | NUR ---
Patient displaying withdrawal symptoms, including: irritability, anxiousness, restlessness and agitation, complicated by impulsive behavior. Scheduled/PRN medications provided, doctor notified of patient's agitation and AMA potential. Will continue to monitor medication effectiveness.
[2016-11-18 08:00] VITALS: BP 128/65
--- NOTE | 2016-11-18 08:15 | NUR ---
DR MERRITT IN ROOM WITH PATIENT AT THIS TIME.
--- NOTE | 2016-11-18 08:26 | NUR ---
PAITENT C/O INREASED ANXIETY. ATIVAN 2 MG GIVEN VIA IV. WILL MONITOR FOR EFFECTIVENESS, PATIENT LYING IN BED, CALL LIGHT IN REACH.
--- NOTE | 2016-11-18 09:00 | NUR ---
PATIENT C/O LEG PAIN. TYLENOL 500 MG TABLET ADMINISTERED PO. WILL MONITOR FOR EFFECTIVNESS. CALL LIGHT IN REACH.
--- NOTE | 2016-11-18 09:26 | NUR ---
PATIENT STATES THAT ATIVAN NOT EFFECTIVE, DOCTOR IN ROOM WITH PATIENT AT THIS TIME. NEW ORDERS RECEIVED.
--- NOTE | 2016-11-18 09:50 | NUR ---
PATIENT C/O MUSCLE PAIN. ROBAXIN 750 MG TABLET ADMINISTERED PO. WILL MONITOR FOR EFFECTIVENESS. CALL LIGHT IN REACH.
--- NOTE | 2016-11-18 09:50 | NUR ---
1 X DOSE OF ATIVAN GIVEN TO PATIENT.
--- NOTE | 2016-11-18 10:20 | NUR ---
CALLED DR MERRITT TO NOTIFY HIM THAT PATIENT IS COMPLAINING OF "FEELING A SEIZURE" COMING ON, HALLUCINATIONS AND SWEATING. DR MERRITT STATES HE WILL COME TO FLOOR TO ASSESS PATIENT.
--- NOTE | 2016-11-18 10:30 | NUR ---
DR MERRITT IN TO ASSESS PATIENT.
--- NOTE | 2016-11-18 10:50 | NUR ---
ROBAXIN EFFECTIVE. PATIENT RESTING IN BED, CALL LIGHT IN REACH.
--- NOTE | 2016-11-18 11:34 | NUR ---
SUPERVISOR SHAVING AND SPLITTING CAME TO THIS NURSE STATING SHE FOUND ASHES AROUND TOILET, FAINT SMELL OF CIGARETTE SMOKE AND A MOVED OVERHEARD TILE ON THE CEILING IN THE BATHROOM. RN RENAL NOTIFIED.
--- NOTE | 2016-11-18 11:42 | NUR ---
DR MERRITT NOTIFIED THAT PATIENT WOULD LIKE TO SPEAK WITH HIM. STATES HE WILL BE UP SHORTLY.
--- NOTE | 2016-11-18 11:45 | NUR ---
DR MERRITT RETURNED PHONE CALL. STATED HE WOULD BE UP TO SEE PATIENT BUT THAT DR. VU STATES THAT THE PATIENT IS TO BE REMOVED FROM THE BUILDING VIA [employer] HE IS NONCOMPLIANT TO POLICIES OF THE HOSPITAL. NURSING DISTRIBUTION MANAGER NOTIFIED. PATIENT NOTIFIED.
--- NOTE | 2016-11-18 11:50 | NUR ---
IV REMOVED AND RESTAURANT HOST REMOVED ON PATIENT WHILE DR MERRITT PRESENT AT BEDSIDE. SECURITY ALSO IN ROOM TO TAKE PATIENT OUT OF HOSPITAL.
[2016-11-18 12:00] VITALS: BP 148/82
--- NOTE | 2016-11-18 12:00 | NUR ---
Discharge instructions reviewed with patient/family. Patient receptive and verbalizes understanding. Follow-up care arranged. Written instructions given to patient/family. TRAVIS RODRIGUEZ
== END 2016-11-18 11:50 | disposition home or self-care (01) | DRG 897 ==
LOC: ED 00:36 → 4E 03:26 → EDHOLD 03:26 → 4E 03:40
PROVIDERS: Family Medicine; Physician Assistant; ADMIT Internal Medicine
DX: F10.239 Alcohol dependence with withdrawal, unspecified (principal); F14.10 Cocaine abuse, uncomplicated; E44.1 Mild protein-calorie malnutrition; I10 Essential (primary) hypertension; E87.1 Hypo-osmolality and hyponatremia; R74.0 Nonspecific elevation of levels of transaminase and lactic acid dehydrogenase [LDH]; R73.9 Hyperglycemia, unspecified; I25.10 Atherosclerotic heart disease of native coronary artery without angina pectoris; J44.9 Chronic obstructive pulmonary disease, unspecified; E78.5 Hyperlipidemia, unspecified; F60.3 Borderline personality disorder; Y90.9 Presence of alcohol in blood, level not specified; F41.9 Anxiety disorder, unspecified; F12.10 Cannabis abuse, uncomplicated; G25.81 Restless legs syndrome; F32.9 Major depressive disorder, single episode, unspecified; G40.909 Epilepsy, unspecified, not intractable, without status epilepticus; G43.909 Migraine, unspecified, not intractable, without status migrainosus; K21.9 Gastro-esophageal reflux disease without esophagitis; K44.9 Diaphragmatic hernia without obstruction or gangrene; F13.10 Sedative, hypnotic or anxiolytic abuse, uncomplicated; Z68.21 Body mass index [BMI] 21.0-21.9, adult; Z88.8 Allergy status to other drugs, medicaments and biological substances; Z79.82 Long term (current) use of aspirin; Z79.899 Other long term (current) drug therapy; Z95.818 Presence of other cardiac implants and grafts; Z82.49 Family history of ischemic heart disease and other diseases of the circulatory system; Z82.3 Family history of stroke; Z83.3 Family history of diabetes mellitus

== ENCOUNTER 2016-11-21 03:52 | Emergency (ER) | payer MEDICARE, MEDICAID ==
[~2016-11-21] VITALS: Ht 185.4 cm; Wt 81.6 kg
[~2016-11-21 03:52] MED LIST changes: +SUBOXONE 12 MG1 EACH SL
[2016-11-21 04:34] LABS: BASO % 0.6 % (0.0-1.0); EOS # 0.2 10*3/uL (0.0-0.4); EOS % 2.5 % (1.0-4.0); HEMATOCRIT 37.1 % (42.0-52.0); HEMOGLOBIN 12.2 g/dl (14.0-18.0); LYMPH # 2.2 10*3/uL (1.3-4.4); LYMPH % 31.3 % (27.0-41.0); MEAN CELL VOLUME 90.9 fl (80.0-94.0); MEAN CORPUSCULAR HGB 29.9 pg (27.0-31.0); MEAN CORPUSCULAR HGB CONC 32.9 g/dl (33.0-37.0); MONO # 0.4 10*3/uL (0.1-1.0); MONO % 5.9 % (3.0-9.0); NEUT # 4.2 10*3/uL (2.3-7.9); NEUT % 59.3 % (47.0-73.0); PLATELET COUNT AUTOMATED 289 10*3/uL (130-400); RED BLOOD COUNT 4.08 10*6/uL (4.50-5.90); RED CELL DISTRI WIDTH 14.1 % (0-14.5); WHITE BLOOD COUNT 7.1 10*3/uL (4.8-10.8)
[2016-11-21 04:50] LABS: ACETAMINOPHEN (TYLENOL) < 2.0 ug/ml (10-30); ALBUMIN 3.5 gm/dl (3.1-4.5); ALKALINE PHOSPHATASE 106 U/L (45-117); BUN 4 mg/dl (7-24); CHLORIDE 102 mmol/L (98-107); CREATININE 0.62 mg/dL (0.70-1.30); POTASSIUM 3.8 mmol/L (3.5-5.1); SGOT/AST 39 IU/L (3-35); SGPT/ALT 46 U/L (12-78); SODIUM 138 mmol/L (136-145); TOTAL PROTEIN 7.7 gm/dL (6.4-8.2)
[2016-11-21 08:45] LABS: BILIRUBIN NEGATIVE (NEGATIVE); BLOOD NEGATIVE (NEGATIVE); CLARITY CLEAR (CLEAR); COLOR YELLOW (YELLOW); GLUCOSE NEGATIVE (NEGATIVE); KETONE NEGATIVE (NEGATIVE); LEUKO ESTERASE NEGATIVE (NEGATIVE); NITRITE NEGATIVE (NEGATIVE); SPECIFIC GRAVITY <= 1.005 (1.005-1.030); UROBILINOGEN 0.2 E.U./dl (0.2-1.0)
[2016-11-21 08:47] VITALS: BP 143/85
[2016-11-21 08:54] LABS: URINE AMPHETAMINES < 1000 (1000ng/ml); URINE BARBITURATES > 200 (200ng/ml); URINE BENZODIAZEPINES > 200 (200ng/ml); URINE CANNABINOIDS (THC) > 50 (50ng/ml); URINE COCAINE > 300 (300ng/ml); URINE METHADONE < 300 (300ng/ml); URINE OPIATES < 300 (300ng/ml)
[2016-11-21 08:55] LABS: URINE PHENCYCLIDINE < 25 (25ng/ml)
== END 2016-11-21 10:50 | disposition home or self-care (01) ==
LOC: ED 03:52
PROVIDERS: Emergency Medicine
DX: R45.1 Restlessness and agitation (principal); F10.229 Alcohol dependence with intoxication, unspecified; F19.90 Other psychoactive substance use, unspecified, uncomplicated; I10 Essential (primary) hypertension; E78.5 Hyperlipidemia, unspecified; I25.10 Atherosclerotic heart disease of native coronary artery without angina pectoris; G43.909 Migraine, unspecified, not intractable, without status migrainosus; Z95.5 Presence of coronary angioplasty implant and graft; F17.200 Nicotine dependence, unspecified, uncomplicated

== ENCOUNTER 2017-06-09 19:22 | Inpatient (IN) | payer MEDICARE ==
[~2017-06-09] VITALS: Ht 187.9 cm; Wt 81.6 kg
[2017-06-09 19:22] VITALS: BP 105/65
[2017-06-09] MEDS ORDERED: KLONOPIN1 M1 PO (19:37)
[2017-06-09] MEDS ORDERED: PROLIXIN5 MG PO (19:38)
[2017-06-09] MEDS ORDERED: PRILOSEC20 M1 PO (19:38)
[2017-06-09] MEDS ORDERED: TRAMADOL HCL50 MG PO (19:39)
[2017-06-09 19:51] LABS: BASO % 0.3 % (0.0-1.0); EOS # 0.1 10*3/uL (0.0-0.4); EOS % 1.1 % (1.0-4.0); HEMATOCRIT 34.9 % (42.0-52.0); HEMOGLOBIN 12.1 g/dl (14.0-18.0); LYMPH # 3.7 10*3/uL (1.3-4.4); LYMPH % 30.1 % (27.0-41.0); MEAN CELL VOLUME 87.9 fl (80.0-94.0); MEAN CORPUSCULAR HGB 30.5 pg (27.0-31.0); MEAN CORPUSCULAR HGB CONC 34.7 g/dl (33.0-37.0); MEAN PLATELET VOLUME 9.9 fl (9.6-12.3); MONO # 1.3 10*3/uL (0.1-1.0); MONO % 10.6 % (3.0-9.0); NEUT # 7.1 10*3/uL (2.3-7.9); NEUT % 57.4 % (47.0-73.0); PLATELET COUNT AUTOMATED 201 10*3/uL (130-400); RED BLOOD COUNT 3.97 10*6/uL (4.50-5.90); RED CELL DISTRI WIDTH 13.1 % (0-14.5); WHITE BLOOD COUNT 12.3 10*3/uL (4.8-10.8)
[2017-06-09 20:06] LABS: ALBUMIN 3.6 gm/dl (3.1-4.5); ALKALINE PHOSPHATASE 98 U/L (45-117); BUN 9 mg/dl (7-24); CHLORIDE 102 mmol/L (98-107); CREATININE 0.79 mg/dL (0.70-1.30); POTASSIUM 3.5 mmol/L (3.5-5.1); SGOT/AST 35 IU/L (3-35); SGPT/ALT 42 U/L (12-78); SODIUM 135 mmol/L (136-145); TOTAL PROTEIN 7.4 gm/dL (6.4-8.2)
[2017-06-09 20:08] LABS: ACETAMINOPHEN (TYLENOL) < 2.0 ug/ml (10-30); TROPONIN I < 0.015 ng/ml (<0.045)
[2017-06-09 22:45] VITALS: BP 105/65; BP 109/55
[2017-06-09 22:54] LABS: BILIRUBIN NEGATIVE (NEGATIVE); BLOOD NEGATIVE (NEGATIVE); CLARITY CLEAR (CLEAR); COLOR YELLOW (YELLOW); GLUCOSE NEGATIVE (NEGATIVE); KETONE NEGATIVE (NEGATIVE); LEUKO ESTERASE NEGATIVE (NEGATIVE); NITRITE NEGATIVE (NEGATIVE); SPECIFIC GRAVITY <= 1.005 (1.005-1.030); UROBILINOGEN 0.2 E.U./dl (0.2-1.0)
[2017-06-09 23:02] LABS: WBC 0-2 wbc/hpf (0-5)
[2017-06-09 23:04] LABS: URINE AMPHETAMINES < 1000 (1000ng/ml); URINE BARBITURATES < 200 (200ng/ml); URINE BENZODIAZEPINES < 200 (200ng/ml); URINE CANNABINOIDS (THC) < 50 (50ng/ml); URINE COCAINE < 300 (300ng/ml); URINE METHADONE < 300 (300ng/ml); URINE OPIATES < 300 (300ng/ml)
[2017-06-09 23:06] LABS: URINE PHENCYCLIDINE < 25 (25ng/ml)
[2017-06-10] VITALS: BP 118/67
[2017-06-10 04:00] VITALS: BP 123/65
[2017-06-10 06:07] LABS: ALBUMIN 3.1 gm/dl (3.1-4.5); BUN 8 mg/dl (7-24); CHLORIDE 109 mmol/L (98-107); CHOLESTEROL 136 mg/dL (<200); CREATININE 0.71 mg/dL (0.70-1.30); PHOSPHOROUS 3.7 mg/dL (2.5-4.9); SGOT/AST 28 IU/L (3-35); SGPT/ALT 35 U/L (12-78); SODIUM 142 mmol/L (136-145); TOTAL PROTEIN 6.4 gm/dL (6.4-8.2); TRIGLYCERIDES 117 mg/dl (<150); VLDL CHOLESTEROL 23 mg/dL (6-40)
[2017-06-10 06:09] LABS: BASO % 0.3 % (0.0-1.0); EOS # 0.1 10*3/uL (0.0-0.4); EOS % 1.9 % (1.0-4.0); HEMATOCRIT 34.2 % (42.0-52.0); HEMOGLOBIN 11.5 g/dl (14.0-18.0); LYMPH # 2.2 10*3/uL (1.3-4.4); LYMPH % 31.9 % (27.0-41.0); MEAN CORPUSCULAR HGB 30.3 pg (27.0-31.0); MEAN CORPUSCULAR HGB CONC 33.6 g/dl (33.0-37.0); MEAN PLATELET VOLUME 10.5 fl (9.6-12.3); MONO # 0.9 10*3/uL (0.1-1.0); MONO % 13.2 % (3.0-9.0); NEUT # 3.6 10*3/uL (2.3-7.9); NEUT % 52.4 % (47.0-73.0); PLATELET COUNT AUTOMATED 176 10*3/uL (130-400); RED CELL DISTRI WIDTH 13.4 % (0-14.5); WHITE BLOOD COUNT 6.8 10*3/uL (4.8-10.8)
[2017-06-10 06:12] LABS: ACT PARTIAL THROMBO TIME 25.5 SECONDS (20.8-31.5)
[2017-06-10 06:13] LABS: ALKALINE PHOSPHATASE 80 U/L (45-117); HDL CHOLESTEROL 28 mg/dl (40-60); LDL CHOLESTEROL 85 mg/dL (9-159)
[2017-06-10 08:00] VITALS: BP 100/67
[2017-06-10 08:22] LABS: VITAMIN D, 25-HYDROXY 25.1 ng/mL (30-100)
[2017-06-10 12:00] VITALS: BP 127/76
[2017-06-10 16:00] VITALS: BP 130/78
[2017-06-10 20:00] VITALS: BP 129/78
[2017-06-11] VITALS: BP 133/70
[2017-06-11 06:43] LABS: BASO % 0.5 % (0.0-1.0); EOS # 0.1 10*3/uL (0.0-0.4); EOS % 1.8 % (1.0-4.0); HEMATOCRIT 39.9 % (42.0-52.0); HEMOGLOBIN 13.1 g/dl (14.0-18.0); LYMPH # 1.7 10*3/uL (1.3-4.4); LYMPH % 28.6 % (27.0-41.0); MEAN CELL VOLUME 91.1 fl (80.0-94.0); MEAN CORPUSCULAR HGB 29.9 pg (27.0-31.0); MEAN CORPUSCULAR HGB CONC 32.8 g/dl (33.0-37.0); MEAN PLATELET VOLUME 10.6 fl (9.6-12.3); MONO # 0.7 10*3/uL (0.1-1.0); NEUT # 3.4 10*3/uL (2.3-7.9); NEUT % 56.8 % (47.0-73.0); PLATELET COUNT AUTOMATED 185 10*3/uL (130-400); RED BLOOD COUNT 4.38 10*6/uL (4.50-5.90); RED CELL DISTRI WIDTH 13.4 % (0-14.5)
[2017-06-11 07:07] LABS: ALBUMIN 3.2 gm/dl (3.1-4.5); ALKALINE PHOSPHATASE 74 U/L (45-117); BUN 7 mg/dl (7-24); CHLORIDE 105 mmol/L (98-107); CREATININE 0.75 mg/dL (0.70-1.30); SGOT/AST 29 IU/L (3-35); SGPT/ALT 35 U/L (12-78); SODIUM 139 mmol/L (136-145)
[2017-06-11 08:00] VITALS: BP 114/55
[2017-06-11 12:00] VITALS: BP 111/70
[2017-06-11 16:00] VITALS: BP 129/85
[2017-06-11 20:00] VITALS: BP 124/80
[2017-06-14] MEDS ORDERED: KEFLEX500 M1 PO (05:05)
[2017-06-14] MEDS ORDERED: PROTONIX40 MG PO (05:13)
[2017-06-14] MEDS ORDERED: ATIVAN2 M1 PO (05:14)
== END 2017-06-12 01:05 | disposition left against medical advice (07) | DRG 392 ==
LOC: ED 19:22 → ICCU 20:46 → EDHOLD 20:46 → ICCU 21:36 → 5E 06-10 13:57
PROVIDERS: Emergency Medicine; Internal Medicine; Student in an Organized Health Care Education/Training Program
DX: K21.9 Gastro-esophageal reflux disease without esophagitis (principal); F10.231 Alcohol dependence with withdrawal delirium; I95.9 Hypotension, unspecified; E87.1 Hypo-osmolality and hyponatremia; R45.851 Suicidal ideations; E83.51 Hypocalcemia; F10.29 Alcohol dependence with unspecified alcohol-induced disorder; F10.232 Alcohol dependence with withdrawal with perceptual disturbance; R65.10 Systemic inflammatory response syndrome (SIRS) of non-infectious origin without acute organ dysfunction; F10.239 Alcohol dependence with withdrawal, unspecified; F11.23 Opioid dependence with withdrawal; F14.10 Cocaine abuse, uncomplicated; R45.850 Homicidal ideations; I25.10 Atherosclerotic heart disease of native coronary artery without angina pectoris; D72.829 Elevated white blood cell count, unspecified; I10 Essential (primary) hypertension; J44.9 Chronic obstructive pulmonary disease, unspecified; E78.5 Hyperlipidemia, unspecified; F60.3 Borderline personality disorder; F12.10 Cannabis abuse, uncomplicated; F41.9 Anxiety disorder, unspecified; D64.9 Anemia, unspecified; G25.81 Restless legs syndrome; Z53.21 Procedure and treatment not carried out due to patient leaving prior to being seen by health care provider; F32.9 Major depressive disorder, single episode, unspecified; G40.909 Epilepsy, unspecified, not intractable, without status epilepticus; G43.909 Migraine, unspecified, not intractable, without status migrainosus; R74.0 Nonspecific elevation of levels of transaminase and lactic acid dehydrogenase [LDH]; F19.10 Other psychoactive substance abuse, uncomplicated; K44.9 Diaphragmatic hernia without obstruction or gangrene; R73.9 Hyperglycemia, unspecified; Z71.6 Tobacco abuse counseling; Z72.0 Tobacco use; Z83.3 Family history of diabetes mellitus; Z88.8 Allergy status to other drugs, medicaments and biological substances; Z79.82 Long term (current) use of aspirin; Z79.899 Other long term (current) drug therapy

== ENCOUNTER 2017-06-15 07:08 | Inpatient (IN) | payer MEDICARE ==
[~2017-06-15] VITALS: Ht 182.8 cm; Wt 85.7 kg
[~2017-06-15 07:08] MED LIST changes: +ATIVAN2 M1 PO; +KEFLEX500 M1 PO; +KLONOPIN1 M1 PO; +PRILOSEC20 M1 PO; +PROLIXIN5 MG PO
[2017-06-15 07:31] VITALS: BP 146/78
[2017-06-15 07:40] LABS: BASO % 0.4 % (0.0-1.0); EOS # 0.1 10*3/uL (0.0-0.4); EOS % 1.3 % (1.0-4.0); HEMATOCRIT 36.9 % (42.0-52.0); HEMOGLOBIN 12.6 g/dl (14.0-18.0); LYMPH # 1.5 10*3/uL (1.3-4.4); LYMPH % 22.1 % (27.0-41.0); MEAN CELL VOLUME 88.9 fl (80.0-94.0); MEAN CORPUSCULAR HGB 30.4 pg (27.0-31.0); MEAN CORPUSCULAR HGB CONC 34.1 g/dl (33.0-37.0); MEAN PLATELET VOLUME 9.9 fl (9.6-12.3); MONO # 0.7 10*3/uL (0.1-1.0); MONO % 10.6 % (3.0-9.0); NEUT # 4.4 10*3/uL (2.3-7.9); NEUT % 65.3 % (47.0-73.0); PLATELET COUNT AUTOMATED 205 10*3/uL (130-400); RED BLOOD COUNT 4.15 10*6/uL (4.50-5.90); RED CELL DISTRI WIDTH 13.2 % (0-14.5); WHITE BLOOD COUNT 6.8 10*3/uL (4.8-10.8)
[2017-06-15 07:55] LABS: ALBUMIN 3.4 gm/dl (3.1-4.5); ALKALINE PHOSPHATASE 101 U/L (45-117); BUN 5 mg/dl (7-24); CHLORIDE 107 mmol/L (98-107); POTASSIUM 4.1 mmol/L (3.5-5.1); SGOT/AST 77 IU/L (3-35); SGPT/ALT 57 U/L (12-78); SODIUM 141 mmol/L (136-145); TOTAL PROTEIN 7.5 gm/dL (6.4-8.2)
[2017-06-15 08:00] LABS: BILIRUBIN NEGATIVE (NEGATIVE); BLOOD NEGATIVE (NEGATIVE); CLARITY CLEAR (CLEAR); COLOR YELLOW (YELLOW); GLUCOSE NEGATIVE (NEGATIVE); KETONE NEGATIVE (NEGATIVE); LEUKO ESTERASE NEGATIVE (NEGATIVE); NITRITE NEGATIVE (NEGATIVE); SPECIFIC GRAVITY <= 1.005 (1.005-1.030); UROBILINOGEN 0.2 E.U./dl (0.2-1.0)
[2017-06-15 08:07] LABS: MUCOUS TRACE
[2017-06-15 08:08] LABS: URINE AMPHETAMINES < 1000 (1000ng/ml); URINE BARBITURATES < 200 (200ng/ml); URINE BENZODIAZEPINES > 200 (200ng/ml); URINE CANNABINOIDS (THC) > 50 (50ng/ml); URINE COCAINE > 300 (300ng/ml); URINE METHADONE < 300 (300ng/ml); URINE OPIATES < 300 (300ng/ml)
[2017-06-15 08:14] LABS: URINE PHENCYCLIDINE < 25 (25ng/ml)
[2017-06-15 11:40] VITALS: BP 129/76
[2017-06-15 11:42] VITALS: BP 129/76
[2017-06-15 12:00] VITALS: BP 129/76
[2017-06-15 12:14] LABS: BASO % 0.5 % (0.0-1.0); EOS # 0.1 10*3/uL (0.0-0.4); EOS % 0.9 % (1.0-4.0); HEMATOCRIT 37.2 % (42.0-52.0); HEMOGLOBIN 12.6 g/dl (14.0-18.0); LYMPH # 1.4 10*3/uL (1.3-4.4); LYMPH % 18.3 % (27.0-41.0); MEAN CELL VOLUME 89.2 fl (80.0-94.0); MEAN CORPUSCULAR HGB 30.2 pg (27.0-31.0); MEAN CORPUSCULAR HGB CONC 33.9 g/dl (33.0-37.0); MEAN PLATELET VOLUME 9.9 fl (9.6-12.3); MONO # 0.8 10*3/uL (0.1-1.0); MONO % 10.4 % (3.0-9.0); NEUT # 5.1 10*3/uL (2.3-7.9); NEUT % 69.6 % (47.0-73.0); PLATELET COUNT AUTOMATED 202 10*3/uL (130-400); RED BLOOD COUNT 4.17 10*6/uL (4.50-5.90); RED CELL DISTRI WIDTH 13.2 % (0-14.5); WHITE BLOOD COUNT 7.4 10*3/uL (4.8-10.8)
[2017-06-15 12:29] LABS: ALBUMIN 3.4 gm/dl (3.1-4.5); ALKALINE PHOSPHATASE 102 U/L (45-117); BUN 7 mg/dl (7-24); CHLORIDE 109 mmol/L (98-107); CREATININE 0.65 mg/dL (0.70-1.30); POTASSIUM 4.3 mmol/L (3.5-5.1); SGOT/AST 70 IU/L (3-35); SGPT/ALT 55 U/L (12-78); SODIUM 143 mmol/L (136-145); TOTAL PROTEIN 7.4 gm/dL (6.4-8.2)
[2017-06-15 16:00] VITALS: BP 124/70
[2017-06-15 20:00] VITALS: BP 126/74
[2017-06-16] VITALS: BP 126/53
== END 2017-06-16 08:29 | disposition left against medical advice (07) | DRG 392 ==
LOC: ED 07:08 → 5E 10:49 → EDHOLD 10:49 → 5E 10:59
PROVIDERS: Emergency Medicine; Registered Nurse
DX: R11.0 Nausea (principal); B19.20 Unspecified viral hepatitis C without hepatic coma; F10.230 Alcohol dependence with withdrawal, uncomplicated; G40.909 Epilepsy, unspecified, not intractable, without status epilepticus; F41.9 Anxiety disorder, unspecified; I25.10 Atherosclerotic heart disease of native coronary artery without angina pectoris; J44.9 Chronic obstructive pulmonary disease, unspecified; F32.9 Major depressive disorder, single episode, unspecified; K21.9 Gastro-esophageal reflux disease without esophagitis; I10 Essential (primary) hypertension; G43.909 Migraine, unspecified, not intractable, without status migrainosus; G25.81 Restless legs syndrome; F17.200 Nicotine dependence, unspecified, uncomplicated; F11.90 Opioid use, unspecified, uncomplicated; E78.5 Hyperlipidemia, unspecified; F12.10 Cannabis abuse, uncomplicated; R74.0 Nonspecific elevation of levels of transaminase and lactic acid dehydrogenase [LDH]; F14.10 Cocaine abuse, uncomplicated; Z98.61 Coronary angioplasty status; Z88.9 Allergy status to unspecified drugs, medicaments and biological substances; Z71.6 Tobacco abuse counseling; Z72.89 Other problems related to lifestyle; Z83.3 Family history of diabetes mellitus; Z82.49 Family history of ischemic heart disease and other diseases of the circulatory system; Z82.3 Family history of stroke; Z53.21 Procedure and treatment not carried out due to patient leaving prior to being seen by health care provider